=== PATIENT | male | born 1940 | race Hispanic/Latino ===

== ENCOUNTER → 2019-02-08 | Day surgery (SDC) | payer MEDICARE ==
[2019-02-04 10:49] LABS: BASOPHILS # (AUTO) 0.1 (0.0-0.1); BASOPHILS % 0.8 % (0.0-1.0); EOSINOPHILS # (AUTO) 0.4 (0.0-0.4); EOSINOPHILS % 4.3 % (0.0-6.0); HEMATOCRIT 33.4 % (38.2-49.6); HEMOGLOBIN 11.4 g/dL (14.0-18.0); LYMPHOCYTES # (AUTO) 3.2 (1.0-3.2); LYMPHOCYTES % 37.4 % (18.0-39.1); MEAN CORPUSCULAR HEMOGLOBIN 33.4 pg (28-32); MEAN CORPUSCULAR HGB CONC 34.1 g/dL (31-35); MEAN CORPUSCULAR VOLUME 97.9 fL (81-99); NEUTROPHILS # (AUTO) 3.9 (2.1-6.9); NEUTROPHILS % 45.3 % (38.7-80.0); PLATELET COUNT 202 x10e3/uL (140-360); RED BLOOD COUNT 3.41 x10e6/uL (4.3-5.7); RED CELL DISTRIBUTION WIDTH 13.8 % (11.7-14.4)
[2019-02-04 11:05] LABS: INR 0.91; PROTHROMBIN TIME 12.7 seconds (11.9-14.5)
[2019-02-04 11:11] LABS: ALBUMIN 3.9 g/dL (3.5-5.0); ALBUMIN/GLOBULIN RATIO 1.1 (0.8-2.0); ANION GAP 12.1 mmol/L (8-16); CALCIUM 10.2 mg/dL (8.4-10.2); CREATININE, SERUM 4.66 mg/dL (0.72-1.25); POTASSIUM 5.1 mmol/L (3.5-5.1)
[2019-02-08] VITALS (9 sets, daily range): BP systolic 121–167; BP diastolic 63–77
[~2019-02-08] VITALS: Ht 182.9 cm; Wt 117.9 kg
[~2019-02-08] MED LIST: ALLOPURINOL100 MG PO; AMLODIPINE BESY10 MG PO; ASPIR 8181 MG PO; ATENOLOL50 MG PO; CALCIUM ACETAT667 M1 PO; FENTANYL CITRATE/PF 100MCG/2 ML INJ ONE; GABAPENTIN100 MG PO; HEPARIN SOD (PORCINE) 1000 UNIT/ML 30ML ONE; HEPARIN SOD/SOD CHLORIDE 2,000 ML ONE; HUMALOG KWIKPEN SQ; HUMULIN R100 UNIT/2 SC; IOPAMIDOL 300MG/ML 100 ML INFUS..BTL IV ONE; IOPAMIDOL 370 MG/ML 200 ML INFUS..BTL INJ ONE; LANTUS SQ; LASIX20 MG PO; LIDOCAINE HCL 2% LOCAL 20 ML VIAL ONE; MIDAZOLAM HCL 2 MG/2 ML VIAL ONE; NITROGLYCERIN/D5W 200 MCG/ML 250 ML ONE; RENAGEL800 MG PO; SIMVASTATIN20 MG PO; SODIUM CHLORIDE 0.9% 1000ML 0 ML ONE; SODIUM CHLORIDE 0.9% 1000ML 1,000 ML ONE; VERAPAMIL HCL 2.5 MG/ML 2 ML VIAL ONE; ZEMPLAR1 MCG PO
--- OUTSIDE RECORDS SUMMARY | 2019-02-08 05:52 | XMS REPORT | Clinical Summary ---
Author Author FABIOLA [facility] Organization [facility] Address Unknown Phone Unavailable Care Team Providers Care Oil Pipeline Operator Name Role Phone Shay Owusu PCP Allergies Comments Active Allergy Reactions Severity Noted Date Cephalexin Rash Low 03/24/2016 Medications End Date Status Medication Sig Dispensed Refills Start Date Active amLODIPine (NORVASC) 10 Take 10 mg by 0 MG tablet mouth daily. Active simvastatin (ZOCOR) 20 MG Take 20 mg by 0 tablet mouth nightly. Active atenolol (TENORMIN) 50 MG Take 50 mg by 0 tablet mouth daily. Active allopurinol (ZYLOPRIM) Take 100 mg 0 100 MG tablet by mouth daily. Active furosemide (LASIX) 20 MG Take 20 mg by 0 tablet mouth daily Takes 2 pills MWF . Active aspirin 81 MG EC tablet Take 81 mg by 0 mouth daily. Active multivitamin per tablet Take 1 tablet 0 by mouth daily. Active insulin glargine (LANTUS) Inject 66 0 100 unit/mL injection Units subcutaneousl y nightly Use as directed . Active insulin lispro (HUMALOG) Inject 40 0 100 unit/mL injection Units subcutaneousl y 3 (three) times daily before meals. Active Problems Problem Noted Date Leukocytosis 04/15/2016 Elevated troponin 04/15/2016 Fever, unspecified fever cause 04/15/2016 (aortic stenosis) 04/10/2016 Aortic stenosis 04/02/2016 Chronic kidney disease, stage III (moderate) 04/02/2016 Type 2 diabetes mellitus, controlled 04/02/2016 Normocytic normochromic anemia 04/02/2016 HLD (hyperlipidemia) 04/02/2016 Essential hypertension 04/02/2016 PVD (peripheral vascular disease) 04/02/2016 Family History Medical History Relation Name Comments Kidney disease Brother Liver disease Brother Heart disease Father Stroke Mother Relation Name Status Comments Brother Brother Father Mother Social History Date Tobacco Use Types Packs/Day Years Used Never Smoker Smokeless Tobacco: Never Used Alcohol Use Drinks/Week oz/Week Comments No Sex Assigned at Date Recorded Not on file Industry Job Start Date Occupation Not on file Not on file Not on file Travel End Travel History Travel Start No recent travel history available. Last Filed Vital Signs Not on file Plan of Treatment Health Maintenance Due Date Last Done Comments INFLUENZA VACCINE 06/07/2018 Implants Device Identifier Shelf Expiration Date Model / Serial / Lot Implanted Type Area Manufactur er 01/17/2017 [id number] / [id number] / Argueta Eloise 3 Transcatheter Valves N/A: Aorta ARGUETA Heart Valve LIFESCIENC Implanted: Qty: 1 on 04/10/2016 by Fabrice Jones MD Results Not on fileafter 02/07/2018 Insurance Payer Benefit Subscriber ID Type Phone Address Plan / Group MEDICARE MEDICARE A xxxxxxxxxx Medicare B AETNA - MGD CARE AETNA HMO xxxxxxxxxx HMO/POS POS QPOS Advance Directives Patient has advance care planning documents, and code status on file. For more i nformation, please contact: [address] [address] Date Inactivated Comments Code Status Date Activated 04/18/2016 3:52 AM Full Code 04/15/2016 8:35 AM This code status was determined by: Patient 04/11/2016 4:29 PM Full Code 04/10/2016 5:32 AM This code status was determined by: Patient
--- OUTSIDE RECORDS SUMMARY | 2019-02-08 05:52 | XMS REPORT | Clinical Summary ---
Author Author [facility] Organization [facility] Address Unknown Phone Unavailable Care Team Providers Care Joiners Supervisor Name Role Phone Shay Owusu MD PCP Allergies Comments Active Allergy Reactions Severity Noted Date Cephalexin Rash Low 02/18/2017 Medications End Date Status Medication Sig Dispensed Refills Start Date Active allopurinol (ZYLOPRIM) Take 1 tablet 0 100 MG tablet by mouth 7 daily. Active atenolol (TENORMIN) 50 MG Take 1 tablet 0 tablet by mouth 7 daily. Active amLODIPine (NORVASC) 10 Take 1 tablet 0 mg tablet by mouth 7 daily. Active simvastatin (ZOCOR) 20 MG Take 1 tablet 0 tablet by mouth 7 daily. Active aspirin (ECOTRIN) 81 MG Take 81 mg by 0 enteric coated tablet mouth daily. Active glimepiride (AMARYL) 4 MG Take 4 mg by 0 tablet mouth 2 (two) times a day. Active losartan (COZAAR) 25 MG Take 25 mg by 0 tablet mouth daily. Active multivitamin (THERAGRAN) Take 1 tablet 0 tablet by mouth. Active HUMULIN R U-500, CONC, Inject 500 0 KWIKPEN 500 unit/mL (3 unit marking 7 mL) insulin pen on U-100 syringe under the skin. Active paricalcitol (ZEMPLAR) 1 Take 1 mcg by 0 MCG capsule mouth daily. 7 Active furosemide (LASIX) 20 mg Take 20 mg by 0 tablet mouth daily. 7 Active calcium acetate (PHOSLO) Take 667 mg 0 667 mg capsule by mouth 3 7 (three) times a day with meals. Active Problems Problem Noted Date ESRD (end stage renal disease) 04/27/2017 Social History Date Tobacco Use Types Packs/Day Years Used Never Smoker Alcohol Use Drinks/Week oz/Week Comments Yes rare Sex Assigned at Date Recorded Not on file Industry Job Start Date Occupation Not on file Not on file Not on file Travel End Travel History Travel Start No recent travel history available. Last Filed Vital Signs Not on file Plan of Treatment Health Maintenance Due Date Last Done Comments SHINGLES VACCINES (#1) 1992 65+ PNEUMOCOCCAL VACCINE 2007 (1 of 2 - PCV13) PNEUMOCOCCAL 2007 POLYSACCHARIDE VACCINE AGE 65 AND OVER INFLUENZA VACCINE 04/07/2019 Implants Device Identifier Shelf Expiration Date Model / Serial / Lot Implanted Type Area Manufactur er 09/23/2020 [id number] / [id number] / [id number] Graft Vasclr [place]-Zan Stdwl 40cm Vascular Left: Arm, W L GORE 6mm - [id number] - [id number] Graft Lower Implanted: Qty: 1 on 02/19/2017 by Mike Lopez MD Results Not on fileafter 02/07/2018 Insurance Type Payer Benefit Subscriber ID Effective Phone Address Plan / Dates Group HMO AETNA AETNA xxxxxxxxxx 1991- HMO,POS,EP Present O, MC/EC Medicare MEDICARE MEDICARE xxxxxxxxxx 2007-P [place], PART A AND resent [place] B Advance Directives Patient has advance care planning documents on file. For more information, jesus blackman contact: Garth Amador [address] [place] [address]
--- NOTE | 2019-02-08 09:31 | NUR ---
0931 Received pt in Rm #9 Identifierx2 [facility] Peripheral No fix DR Aguilar. NSR Vs Stable No Gross issues pain pallor pressure or dysrhythmia. Rt groin Vascade w/o hematoma or edema. Back to baseline orientation.Abdomen soft and non tender denies necessity to defecate or urinate. Kevin femoral pulses present. Iv infusing well w/o s/s infiltration. Left arm Fistula positive thrill, Iv infusing well w/o s/s infiltration.Discharge planning discussed with Son Jesus Manuel Copies of dc paper with family. 1100 HOB elevated offered po intake and tolerated well. 1130 Iv removed site health Coban dressing.No bleeding not to rt vascade site. Explained POC and explained. ds/rnExplained use of waffle mattress. Denies CO CP or SOB To car per [facility] escort Stable.
--- NOTE | 2019-04-14 15:46 | Operative Report ---
DATE OF PROCEDURE: 02/08/2019 SURGEON: Ramakrishna Aguilar DO PROCEDURES PERFORMED: 1. Conscious sedation, 45 minutes. 2. Selective coronary angiography x2. 3. Selective graft angiography x3. 4. Abdominal aortography. 5. Third-order peripheral angiography of the left lower extremity. 6. Attempted percutaneous transluminal angioplasty of the left posterior tibial artery. PREPROCEDURE DIAGNOSES: History of coronary artery disease and peripheral artery disease with claudication. POSTPROCEDURE DIAGNOSIS: 1. Severe peripheral arterial disease. 2. Severe multivessel coronary artery disease, status post bypass surgery with patent grafts. PROCEDURE IN DETAIL: After informed consent was obtained, the patient was brought to the cardiac catheterization laboratory in a fasting and nonsedated state. Bilateral groins were prepped and draped in the usual sterile fashion. A 2% lidocaine was instilled over the right anterior groin for local anesthesia. Using micropuncture needle, the right common femoral artery was accessed via the modified Seldinger technique and a 5-Bolivian sheath was placed. Diagnostic selective coronary angiography and graft angiography x3 was performed using a JL4, 3DRC, and JR4 catheters. The aortic valve was not crossed due to previous Eloise valve placement. I performed abdominal aortography. I crossed up and over with a 65 cm sheath and attempted percutaneous transluminal angioplasty of the left posterior tibial without success. The patient tolerated the procedure well with no immediate complications and brought back to his room in stable condition. PROCEDURAL FINDINGS: Coronary angiography. 1. The left main coronary artery is patent without significant disease. 2. The left anterior descending coronary artery is occluded at its ostium. The midportion of the vessel is anastomosed to the left internal mammary artery and fills in a retrograde and antegrade fashion. 3. Left circumflex coronary is patent, provides two obtuse marginal vessels with mild diffuse disease. 4. The right coronary artery is a dominant vessel, however, is occluded in the midportion of the RCA. 5. There is a saphenous vein graft anastomosed to the distal RCA with MARCOS-3 flow distally. 6. There is a saphenous vein graft anastomosed to the first diagonal branch. Just distal to the anastomosis, there is a stent in the diagonal artery with a distal branch of the D1 showing a 70% stenosis, however, is less than 2 mm in diameter. 7. There is a Eloise valve present in the aortic position. Peripheral angiography. 1. The abdominal aorta, bilateral iliac systems, and common femoral arteries are patent. 2. The left superficial femoral artery has mild diffuse disease proximally and has a 30-40% stenosis just prior to the left popliteal artery. The left anterior tibial artery is occluded proximally and fills distally via collaterals from the peroneal vessel. The peroneal itself has a 40% stenosis. The left posterior tibial artery is occluded and fills via collaterals from the distal peroneal vessel. 3. The right superficial femoral artery is patent as is the popliteal. The right anterior tibial and peroneal vessels are chronically occluded and fills distally via collaterals. The right posterior tibial artery is patent. IMPRESSION: 1. Severe multivessel coronary artery disease with patent grafts. 2. Severe tibial peripheral artery disease, which collateralizes the bilateral plantar arches. RECOMMENDATIONS: Continue aggressive medical management. DO BRANDI Hairston/SHELLEYL /[id number]
== END | disposition home or self-care (01) ==
LOC: CATH LAB 05:34
PROVIDERS: ATTEND Internal Medicine Cardiovascular Disease
DX: I70.212 Atherosclerosis of native arteries of extremities with intermittent claudication, left leg (principal); I25.810 Atherosclerosis of coronary artery bypass graft(s) without angina pectoris; I10 Essential (primary) hypertension; E11.9 Type 2 diabetes mellitus without complications; I83.813 Varicose veins of bilateral lower extremities with pain; Z01.812 Encounter for preprocedural laboratory examination; Z79.82 Long term (current) use of aspirin; Z79.4 Long term (current) use of insulin; Z68.35 Body mass index [BMI] 35.0-35.9, adult; Z95.1 Presence of aortocoronary bypass graft; Z95.2 Presence of prosthetic heart valve; Z86.73 Personal history of transient ischemic attack (TIA), and cerebral infarction without residual deficits; Z82.49 Family history of ischemic heart disease and other diseases of the circulatory system; Z82.3 Family history of stroke
CPT/HCPCS: 36415; 37228; 75625; 80053; 85025; 85610; 93455; C1760; C1769 ×4; C1887; J1644; J2001; J2250; J7030; Q9967 ×2; 36247; 75716; J3010

== ENCOUNTER 2019-05-12 11:01 | Observation (INO) | payer MEDICARE ==
[~2019-05-12] VITALS: Ht 182.9 cm; Wt 99.8 kg
[~2019-05-12 11:01] MED LIST changes: -FENTANYL CITRATE/PF 100MCG/2 ML INJ ONE; -HEPARIN SOD (PORCINE) 1000 UNIT/ML 30ML ONE; -HEPARIN SOD/SOD CHLORIDE 2,000 ML ONE; -HUMALOG KWIKPEN SQ; -IOPAMIDOL 300MG/ML 100 ML INFUS..BTL IV ONE; -IOPAMIDOL 370 MG/ML 200 ML INFUS..BTL INJ ONE; -LANTUS SQ; -LIDOCAINE HCL 2% LOCAL 20 ML VIAL ONE; -MIDAZOLAM HCL 2 MG/2 ML VIAL ONE; -NITROGLYCERIN/D5W 200 MCG/ML 250 ML ONE; -RENAGEL800 MG PO; -SODIUM CHLORIDE 0.9% 1000ML 0 ML ONE; -SODIUM CHLORIDE 0.9% 1000ML 1,000 ML ONE; -VERAPAMIL HCL 2.5 MG/ML 2 ML VIAL ONE
--- OUTSIDE RECORDS SUMMARY | 2019-05-12 11:04 | XMS REPORT | Clinical Summary ---
Author Author [facility] Organization [facility] Address Unknown Phone Unavailable Care Team Providers Care Reconciliation Coordinator Name Role Phone Shay Owusu MD PCP [...] Use Types Packs/Day Years Used Never Smoker Drinks/Week oz/Week Comments Alcohol Use rare Yes Sex Assigned at Date Recorded Not on file Industry Job Start Date Occupation Not on file Not on file Not on file Travel End Travel History Travel Start No recent travel history available. Last Filed Vital Signs Not on file Plan of Treatment Health Maintenance Due Date Last Done Comments SHINGLES VACCINES (#1) 1992 65+ PNEUMOCOCCAL VACCINE 2007 (1 of 2 - PCV13) INFLUENZA VACCINE 04/07/2019 Implants Device Identifier Shelf Expiration Date Model / Serial / Lot Implanted Type Area Manufactur er 09/23/2020 [id number] / [id number] / [id number] Graft Vasclr [place]-Zan Stdwl 40cm Vascular Left: Arm, W L GORE 6mm - [id number] - [id number] Graft Lower Implanted: Qty: 1 on 02/19/2017 by Mkie Lopez MD at [facility] Results Not on fileafter 2018 Insurance Type Payer Benefit Subscriber ID Effective Phone Address Plan / Dates Group HMO AETNA AETNA xxxxxxxxxx 1991- HMO,POS,EP Present O, MC/EC Medicare MEDICARE MEDICARE xxxxxxxxxx 2007-P [place], PART A AND resent [place] B Advance Directives For more information, please contact: [phone] Patient Health Insurance Assessor Explanation Type Date Recorded Advance Directives, Living Will and Medical Power of Filtering Machine Tender Helper
--- OUTSIDE RECORDS SUMMARY | 2019-05-12 11:04 | XMS REPORT | Clinical Summary ---
Author Author FABIOLA [facility] Organization [facility] Address Unknown Phone Unavailable Care Team Providers Care Water Main Inspector Name Role Phone Shay Owusu PCP Allergies [...] Type Area Manufactur er 01/17/2017 [id number] / [id number] / Argueta Eloise 3 Transcatheter Valves N/A: Aorta ARGUETA Heart Valve LIFESCIENC Implanted: Qty: 1 on 04/10/2016 by Fabrice Jones MD Results Not on fileafter 2018 Insurance Payer Benefit Subscriber ID Type Phone Address Plan / Group MEDICARE MEDICARE A xxxxxxxxxx Medicare B AETNA - MGD CARE AETNA HMO xxxxxxxxxx HMO/POS POS QPOS Advance Directives Patient has advance care planning documents, and code status on file. For more i nformation, please contact: [address] [address] Date Inactivated Comments Code Status Date Activated 04/18/2016 3:52 AM Full Code 04/15/2016 8:35 AM This code status was determined by: Patient 04/11/2016 4:29 PM Full Code 04/10/2016 5:32 AM This code status was determined by: Patient
[2019-05-12 12:02] LABS: BASOPHILS # (AUTO) 0.1 (0.0-0.1); BASOPHILS % 0.6 % (0.0-1.0); EOSINOPHILS # (AUTO) 0.1 (0.0-0.4); EOSINOPHILS % 0.7 % (0.0-6.0); HEMOGLOBIN 10.8 g/dL (14.0-18.0); LYMPHOCYTES # (AUTO) 1.6 (1.0-3.2); LYMPHOCYTES % 15.3 % (18.0-39.1); MEAN CORPUSCULAR HEMOGLOBIN 33.6 pg (28-32); MEAN CORPUSCULAR HGB CONC 34.8 g/dL (31-35); MEAN CORPUSCULAR VOLUME 96.6 fL (81-99); MONOCYTES # (AUTO) 0.7 (0.2-0.8); MONOCYTES % 6.9 % (4.4-11.3); NEUTROPHILS # (AUTO) 8.1 (2.1-6.9); NEUTROPHILS % 76.1 % (38.7-80.0); PLATELET COUNT 226 x10e3/uL (140-360); RED BLOOD COUNT 3.21 x10e6/uL (4.3-5.7); RED CELL DISTRIBUTION WIDTH 13.2 % (11.7-14.4)
[2019-05-12 12:07] LABS: INR 0.9; PROTHROMBIN TIME 12.6 seconds (11.9-14.5)
[2019-05-12 12:08] LABS: PARTIAL THROMBOPLASTIN TIME 40.3 seconds (23.8-35.5)
[2019-05-12 12:15] LABS: ALBUMIN 3.3 g/dL (3.5-5.0); ANION GAP 18.6 mmol/L (8-16); CALCIUM 9.3 mg/dL (8.4-10.2); CREATININE, SERUM 6.46 mg/dL (0.72-1.25); MAGNESIUM 2.3 MG/DL (1.3-2.1); POTASSIUM 3.6 mmol/L (3.5-5.1)
[2019-05-12 12:22] LABS: CREATINE KINASE MB 2.6 ng/mL (0-5.0)
--- NOTE | 2019-05-12 13:15 | NUR ---
PT GIVEN TURKEY SANDWICH TRAY AND DIET COKE, SON AT BEDSIDE ASSISTING WITH MEAL, TOLERATING WELL AT THIS TIME.
--- NOTE | 2019-05-12 13:45 | Diagnostic Imaging Report ---
CT BRAIN WO HISTORY: Fall COMPARISON: None. Technique: Noncontrast axial scans were obtained from skull base to the vertex. Coronal and sagittal reconstructions obtained from the axial data. One or more of the following dose reduction techniques were used: Automated exposure control, adjustment of the mA and/or kV according to patient size, and/or utilization of iterative reconstruction technique. DISCUSSION: Scalp/Skull: Unremarkable. Brain sulci: Mildly prominent. Ventricles: Compensatory dilatation. Extra-axial spaces: No masses or fluid collections. Carotid and vertebral artery calcifications are present. Parenchyma: Moderate bilateral deep white matter hypodensity is likely chronic microvascular ischemic change. Otherwise, no masses, hemorrhage, or large vascular territory acute infarct. Dural sinuses: No abnormal densities. Sellar/Suprasellar region: Intact. Skull base: Intact. Incidental findings: Partially visualized mild bilateral maxillary sinus mucosal thickening. Bilateral ocular lens replacement. IMPRESSION: 1. No acute intracranial abnormalities. 2. Moderate supratentorial chronic microvascular ischemic change. Mild generalized cerebral volume loss. Signed by: Dr. Asael Porter M.D. on 05/12/2019 1:41 PM
[2019-05-12 14:38] LABS: BILIRUBIN,URINE NEGATIVE (NEGATIVE); CLARITY,URINE SL CLOUDY (CLEAR); COLOR,URINE YELLOW (YELLOW); KETONES,URINE NEGATIVE (NEGATIVE); LEUKOCYTE ESTERASE ,URINE NEGATIVE (NEGATIVE); NITRITE,URINE NEGATIVE (NEGATIVE); PROTEIN,URINE DIPSTICK 2+ (NEGATIVE); URINE UROBILINOGEN 0.2 mg/dL (0.2 - 1)
[2019-05-12 14:50] LABS: RBC,URINE 0-5 /HPF (0-5); WBC,URINE (MAN) 0-5 /HPF (0-5)
[2019-05-12 14:51] LABS: EPITHELIAL CELLS,URINE FEW /LPF
--- NOTE | 2019-05-12 15:11 | Diagnostic Imaging Report ---
EXAMINATION: CHEST SINGLE (PORTABLE) INDICATION: Syncope COMPARISON: None FINDINGS: LINES/TUBES:None LUNGS:The lung volumes are low. Patchy airspace opacity involving the left mid and lower lung zone. PLEURA:No pleural effusion or pneumothorax. MEDIASTINUM:The cardiomediastinal silhouette appears normal in size and shape. Sternotomy wires intact. BONES/SOFT TISSUES:Partially visualized sclerotic area at the right proximal humerus, possibly representing a chondroid lesion. ABDOMEN:No free air under the diaphragm. IMPRESSION: Patchy airspace opacity at the left mid and lower lung zones is compatible with aspiration and/or pneumonia in the proper clinical setting. RECOMMENDATIONS: Follow-up chest radiograph in 6-8 weeks to assess for resolution. Signed by: Kaushal Bean MD on 05/12/2019 3:08 PM
--- NOTE | 2019-05-12 16:48 | NUR ---
PT MOVED TO ROOM 11 AT THIS TIME AND PLACED ON HARNESS WORKER.
[2019-05-12] MEDS: PIPERACILLIN/TAZO 2.25 GM 50 ML IV SCH (17:04)
[2019-05-12] MEDS ORDERED: MORPHINE SULFATE 2 MG/ML SYR 1ML IV PRN (17:15)
[2019-05-12] MEDS ORDERED: ONDANSETRON HCL INJ 2MG/ML 2ML 2 MG/ML VIAL IV PRN (17:15)
[2019-05-12] MEDS ORDERED: DEXTROSE 50% SYRINGE 50 ML IV PRN (17:15)
--- OUTSIDE RECORDS SUMMARY | 2019-05-12 17:22 | XMS REPORT | Clinical Summary ---
Author Author FABIOLA [facility] Organization [facility] Address Unknown Phone Unavailable Care Team Providers Care Continuous Mining Machine Lode Miner Name Role Phone Shay Owusu PCP Allergies [...] Type Area Manufactur er 01/17/2017 [id number] / [id number] / Argueta Eloise 3 Transcatheter Valves N/A: [...] file. For more i nformation, please contact: [address] [address] Date Inactivated Comments Code Status Date Activated 04/18/2016 3:52 AM Full Code 04/15/2016 8:35 AM This code status was determined by: Patient 04/11/2016 4:29 PM Full Code 04/10/2016 5:32 AM This code status was determined by: Patient
--- OUTSIDE RECORDS SUMMARY | 2019-05-12 17:22 | XMS REPORT ---
Author Author [facility] Address Unknown Phone Unavailable Care Team Providers Care Mechanical Design Engineer Products Name Role Phone Nicole SANDHU Unavailable Unavailable Problems This patient has no known problems. Allergies, Adverse Reactions, Alerts This patient has no known allergies or adverse reactions. Medications This patient has no known medications. Results Test Description Test Time Test Comments Text Results Atomic Results Result Comments CHEST SINGLE (PORTABLE) 2019-05-12 15:06:00 [facility] [address] [place] [address] Patient Name: SPARKLE HERNANDEZ MR #: [id number] : 1940 Age/Sex: 79/M Req #: [id number] Adm Physician: Ordered by: MERNA SANDHU MD Report #: [id number] Location: ER Room/Bed: Procedure: [id number] DX/CHEST SINGLE (PORTABLE) Exam Date: 05/12/19 Exam Time: 1130 REPORT STATUS: Signed EXAMINATION: CHEST SINGLE (PORTABLE) INDIC ATION: Syncope COMPARISON: None FINDINGS: LINES/TUBES:None LUNGS:The lung volumes are low. Patchy airspace opacity involving the left mid and lower lung zone. PLEURA:No pleural effusion or pneumothorax. MEDIASTINUM:The cardiomediastinal silhouette appears normal in size and shape. Sternotomy wires intact. BONES/SOFT TISSUES:Partially visualized sclerotic area at the right proximal humerus, possibly representing a chondroid lesion. ABDOMEN:No free air under the diaphragm. IMPRESSION: Patchy airspace opacity at the left mid and lower lung zones is compatible with aspiration and/or pneumonia in the proper clinical setting. RECOMMENDATIONS: Follow-up chest radiograph in 6-8 weeks to assess for resolution. Signed by: Sally Nath MD on 05/12/2019 3:08 PM Dictated By: SALLY NATH MD 07 Transcribed By: MARIELA on 05/12/191507 COPY TO: MERNA SANDHU MD CT BRAIN WO 2019-05-12 13:39:00 [place] [address] Patient Name: SPARKLE HERNANDEZ MR #: [id number] : 1940 Age/Sex: 79/M Req #: [id number] Adm Physician: Ordered by: MERNA SANDHU MD Report #: [id number] Location: ER Room/Bed: Procedure: [id number] CT/CT BRAIN WO Exam Date: 05/12/19 Exam Time: 1130 REPORT STATUS: Signed CT BRAIN WO HISTORY: Fall COMPARISON: None. Te chnique: Noncontrast axial scans were obtained from skull base to the vertex. Coronal and sagittal reconstructions obtained from the axial data. One or more of the following dose reduction techniques were used: Automated exposure control, adjustment of the mA and/or kV according to patient size, and/or utilization of iterative reconstruction technique. DISCUSSION: Scalp/Skull: Unremarkable. Brain sulci: Mildly prominent. Ventricles: Compensatory dilatation. Extra-axial spaces: No masses or fluid collections. Carotid and vertebral artery calcifications are present. Parenchyma: Moderate bilateral deep white matter hypodensity is likely chronic microvascular ischemic change. Otherwise, no masses, hemorrhage, or large vascular territory acute infarct. Dural sinuses: No abnormal densities. Sellar/Suprasellar region: Intact. Skull base: Intact. Incidental findings: Partially visualized mild bilateral maxillary sinus mucosal thickening. Bilateral ocular lens replacement. IMPRESSION: 1. No acute intracranial abnormalities. 2. Moderate supratentorial chronic microvascular ischemic change. Mild generalized cerebral volume loss. Signed by: Dr. Asael Porter M.D. on 05/12/2019 1:41 PM Dictated By: ASAEL PORTER MD 1341 Transcribed By: MARIELA on 05/12/19 1341 COPY TO: MERNA SANDHU MD
--- OUTSIDE RECORDS SUMMARY | 2019-05-12 17:22 | XMS REPORT | Clinical Summary ---
Author Author [facility] Organization [facility] Address Unknown Phone Unavailable Care Team Providers Care Transcripter Name Role Phone Shay Owusu MD PCP [...] Lot Implanted Type Area Manufactur er 09/23/2020 [id number] / [id number] / [id number] Graft Vasclr [place]-Zan Stdwl 40cm Vascular Left: Arm, W L GORE 6mm - [id number] - [id number] Graft Lower Implanted: Qty: 1 on 02/19/2017 by Mike Lopez MD at [facility] Results Not on fileafter 2018 Insurance Type Payer Benefit Subscriber ID Effective Phone Address Plan / Dates Group HMO AETNA AETNA xxxxxxxxxx 1991- HMO,POS,EP Present O, MC/EC Medicare MEDICARE MEDICARE xxxxxxxxxx 2007-P [place], PART A AND resent [place] B Advance Directives For more information, please contact: [phone] Patient Laborer Adjustable Steel Joist Explanation Type Date Recorded Advance Directives, Living Will and Medical Power of Stitcher Operator
[2019-05-12] MEDS: AZITHROMYCIN 500MG/NS 250 ML 250 ML IV SCH (18:10)
[2019-05-12 20:00] VITALS: BP 160/71
[2019-05-12] MEDS: INSULIN LISPRO 100 UNIT/1 ML 3ML VIAL SQ SCH (21:00)
--- NOTE | 2019-05-12 21:34 | NUR ---
PT IS TRANSFERRED FROM ER AOX3 .RESPIRATIONS ARE EVEN AND UNLABORED PT HAD FALL AT HOME PT HAS OPEN WOUND BILATERAL KNEE DUE TO FALL .BRUISES AT RT HAND .LEFT HAND PT HAS AV GRAFT FOR DIALYSIS .ORIENTED TO THE ENVIRONMENT .RT HAND 20G S/L .FAMILY AT THE BEDSIDE.CALL LIGHT WITHREACH .CONTINUE TO MONITOR
[2019-05-13] VITALS (11 sets, daily range): BP systolic 124–177; BP diastolic 59–74
[2019-05-13 03:07] LABS: CREATINE KINASE MB 1.9 ng/mL (0-5.0)
[2019-05-13] MEDS ORDERED: SODIUM CHLORIDE 0.9% 250ML 250 ML ONE (03:14)
[2019-05-13] MEDS: PIPERACILLIN/TAZO 2.25 GM 50 ML IV SCH ×2 (04:30→16:30)
--- NOTE | 2019-05-13 06:19 | NUR ---
PT RESTED DURING THE NIGHT .DENIES PAIN .CALL LIGHT WITH IN REACH .CONTINUE TO MONITOR
[2019-05-13 06:49] LABS: BASOPHILS # (AUTO) 0.1 (0.0-0.1); BASOPHILS % 0.7 % (0.0-1.0); EOSINOPHILS # (AUTO) 0.3 (0.0-0.4); EOSINOPHILS % 4.5 % (0.0-6.0); HEMATOCRIT 28.9 % (38.2-49.6); HEMOGLOBIN 10.1 g/dL (14.0-18.0); LYMPHOCYTES % 30.2 % (18.0-39.1); MEAN CORPUSCULAR HEMOGLOBIN 33.8 pg (28-32); MEAN CORPUSCULAR HGB CONC 34.9 g/dL (31-35); MEAN CORPUSCULAR VOLUME 96.7 fL (81-99); MONOCYTES # (AUTO) 0.7 (0.2-0.8); NEUTROPHILS # (AUTO) 3.6 (2.1-6.9); NEUTROPHILS % 54.3 % (38.7-80.0); PLATELET COUNT 223 x10e3/uL (140-360); RED BLOOD COUNT 2.99 x10e6/uL (4.3-5.7); RED CELL DISTRIBUTION WIDTH 13.3 % (11.7-14.4)
--- NOTE | 2019-05-13 07:00 | NUR ---
received am report from RN and morning rounds done. pt is alert and resting in bed, no s/s of distress. call light within reach and pt instructed to call nurse for help.
--- NOTE | 2019-05-13 07:11 | NUR ---
BEDSIDE REPORT GIVEN TO THE ONCOMING NURSE
[2019-05-13 07:13] LABS: ALBUMIN 3.1 g/dL (3.5-5.0); ANION GAP 14.5 mmol/L (8-16); CALCIUM 8.8 mg/dL (8.4-10.2); CHOL/HDL RATIO 5.3 (3.9-4.7); CREATININE, SERUM 6.16 mg/dL (0.72-1.25); POTASSIUM 3.5 mmol/L (3.5-5.1)
[2019-05-13 07:20] LABS: CREATINE KINASE MB 1.6 ng/mL (0-5.0)
[2019-05-13] MEDS: INSULIN LISPRO 100 UNIT/1 ML 3ML VIAL SQ SCH ×4 (07:30→21:22)
[2019-05-13] MEDS ORDERED: ASPIRIN 81 MG CHEW TAB PO SCH (09:00)
[2019-05-13] MEDS: FUROSEMIDE 20 MG TAB PO SCH (10:17)
[2019-05-13] MEDS: ASPIRIN 81 MG ENTERIC COATED PO SCH (10:17)
[2019-05-13] MEDS: GABAPENTIN 100 MG CAP PO SCH ×2 (10:18→16:47)
[2019-05-13] MEDS: CALCIUM ACETATE 667 MG GELCAP PO SCH ×2 (10:27→16:47)
[2019-05-13] MEDS: ATENOLOL 50 MG TAB PO SCH (10:27)
[2019-05-13] MEDS: AMLODIPINE BESYLATE 10 MG TAB PO SCH (10:27)
[2019-05-13] MEDS: ALLOPURINOL 100 MG TAB PO SCH (10:28)
--- NOTE | 2019-05-13 15:12 | NUR ---
Nutrition Screen Note RD Recommendation for Physician: -Rec adding renal to ADA diet -Rec WAXED BAG MACHINE OPERATOR consult if risk of aspiration is observed Plan of Care: RD following, monitoring for tolerance and adequacy Nutrition reason for involvement: Diagnosis Primary Diagnose(s): ESRD, PNA PMH: ESRD on HD, DM Ht: 72in Wt: 220lb BMI: 29.8kg/m2 IBW: 178lb +/- 10% RD Assessment: (05/13) Chart reviewed. Labs and meds reviewed. 79yo M, who was admitted for PNA. CXR showed patchy airspace opacity at the left mid and lower lung zones is compatible with aspiration and/or pneumonia. Visited pt in the room. Pt reported good appetite. No complains of nausea or vomiting. LBM /. Pt reported 20lbs of intentional weight loss through lifestyle changes. Pt denied any chewing or swallowing difficulty. Pt ate 100% of meals since admission. Notified RN of my recommendation for WAXED BAG MACHINE OPERATOR consult if aspiration risk is observed. Will continue to monitor and follow. Current Diet: ADA 1800 Malnutrition Evaluation (05/13/2019) The patient does not meet criteria for a specified degree of malnutrition at this time. Will re-evaluate at follow-up as appropriate. Diet Education Needs Assessment: Diet education not indicated. Followed by RD at [facility], no question during my time of visit. Nutrition Care Level: low Signed: Macy Dumont, , RD, LD
[2019-05-13] MEDS ORDERED: RENAGEL800 MG PO (16:15)
[2019-05-13] MEDS ORDERED: SIMVASTATIN 20 MG TAB PO SCH (21:00)
--- NOTE | 2019-05-13 21:30 | NUR ---
PATIENT IS DONE WITH DIALYSIS, NO SIGNS OF DISTRESS NOTED. 3 LITERS WAS REMOVED FROM PATIENT AND HE IS CURRENTLY EATING MEAL FROM EARLIER. PATIENT IS ALERT, BED IN LOWEST POSITION, CALL LIGHT WITHIN REACH, WILL CONTINUE TO MONITOR.
[2019-05-13] MEDS: AZITHROMYCIN 500MG/NS 250 ML 250 ML IV SCH (22:26)
[2019-05-14] VITALS: BP 129/59
--- NOTE | 2019-05-14 00:50 | Consultation ---
DATE OF CONSULTATION: 05/13/2019 HISTORY OF PRESENT ILLNESS: A 79-year-old gentleman. Renal has been consulted for management of kidney failure. He is scheduled for dialysis today. Currently, awake, alert, resting comfortable. Denies shortness of breath, nausea, vomiting. LABORATORY DATA: Labs show white count 6.6, hemoglobin 10.1. Has a sodium of 133, potassium 3.5, creatinine 6.1. Blood sugar is 244. CK 404, troponin I 0.056. ALLERGIES: CEPHALEXIN. SOCIAL HISTORY: Does not smoke or drink. PAST MEDICAL HISTORY: Significant for hypertension, end-stage renal disease, anemia of chronic kidney disease, secondary hyperparathyroidism, hyperlipidemia, history of gout, history of peripheral neuropathy, diabetes, diabetic kidney disease, diabetic neuropathy, retinopathy, and peripheral vascular disease. Initial blood sugars were relatively low. . Workup include CT brain, shows moderate supratentorial chronic microvascular changes. No acute infarcts and possibility of pneumonia. CURRENT MEDICATIONS: Please see official MAR. 1. He is on Humalog. 2. He receives Lasix 20 mg p.o. daily, which I am going to stop. 3. Simvastatin 20 mg daily. 4. Gabapentin 100 mg p.o. b.i.d. 5. PhosLo 667 mg p.o. t.i.d. with meals. 6. Atenolol 50 mg p.o. daily. 7. Aspirin 81 mg once a day. 8. He is on piperacillin/tazobactam 2.25 IV q.12 as well as azithromycin. PHYSICAL EXAMINATION: GENERAL: Awake, alert, lying supine, in no apparent distress. VITAL SIGNS: Blood pressure 152/66, pulse rate 70, afebrile, respiratory rate 20, oxygen 100% room air. HEAD AND NECK: Cornea clear. Oral mucosa moist. Neck veins flat. No JVD. LUNGS: Occasional bibasilar rales. HEART: S1, S2 audible. ABDOMEN: Otherwise soft, nontender. No apparent visceromegaly. EXTREMITIES: Lower extremity, no edema. LABORATORY DATA: Potassium 3.5, creatinine 6.6. Plan on hemodialysis. Sodium 140, potassium 4, bicarb 35, calcium 2.5. Blood flow 400 tolerated. Systolic blood pressure limit 110. Please see orders. MD SUKHDEV Fernandez/KENYON /[id number]
--- NOTE | 2019-05-14 02:30 | NUR ---
PATIENT IS RESTING IN BED BOTH EYES CLOSED, NO SIGNS OF DISTRESS NOTED. BED IS LOCKED AND IN LOWEST POSITION POSSIBLE, BOTH SIDE RAILS ARE UP, CALL LIGHT WITHIN REACH, WILL CONTINUE TO MONITOR.
[2019-05-14] MEDS: PIPERACILLIN/TAZO 2.25 GM 50 ML IV SCH (03:47)
[2019-05-14 04:00] VITALS: BP 151/66
--- NOTE | 2019-05-14 07:00 | NUR ---
received am report from nurse and morning rounds done. pt is alert and resting in bed, no s/s of distress. call light is within reach and pt instructed to call for help. side rails are up.
[2019-05-14 07:47] VITALS: BP 121/52
[2019-05-14] MEDS: ASPIRIN 81 MG ENTERIC COATED PO SCH (08:22)
[2019-05-14] MEDS: FUROSEMIDE 20 MG TAB PO SCH (08:23)
[2019-05-14] MEDS: CALCIUM ACETATE 667 MG GELCAP PO SCH (08:23)
[2019-05-14] MEDS: AMLODIPINE BESYLATE 10 MG TAB PO SCH (08:23)
[2019-05-14] MEDS: GABAPENTIN 100 MG CAP PO SCH (08:23)
[2019-05-14] MEDS: ATENOLOL 50 MG TAB PO SCH (08:24)
[2019-05-14] MEDS: ALLOPURINOL 100 MG TAB PO SCH (08:24)
--- NOTE | 2019-05-15 01:05 | Discharge Summary ---
DISCHARGE DIAGNOSES: 1. Pneumonia. 2. End-stage renal disease. 3. Diabetes. 4. Hypertension. 5. Anemia. HISTORY OF PRESENT ILLNESS AND HOSPITAL COURSE: See hospital chart for full details. The patient is a gentleman, who presented with some cough, congestion, and , where he was found to have a small evidence of pneumonia. His improved after infusing sugar. He was brought in and placed on IV antibiotics, had his dialysis treatment. He states he felt great moving quickly. By the next morning, the patient stated he was doing great, wanted to go home. He was no longer coughing, so he was discharged home with p.o. Levaquin for 7 more days and he will follow up in 1 to 2 weeks with me. Please see hospital chart for full details. MD ARTURO Owen/KENYON /[id number]
== END 2019-05-14 09:00 | disposition home or self-care (01) ==
LOC: ER 11:01 → ERHOLD 16:54 → MED/SURG3 20:36
PROVIDERS: ADMIT Internal Medicine; ATTEND Internal Medicine
DX: J18.9 Pneumonia, unspecified organism (principal); E11.22 Type 2 diabetes mellitus with diabetic chronic kidney disease; I12.0 Hypertensive chronic kidney disease with stage 5 chronic kidney disease or end stage renal disease; N18.6 End stage renal disease; Z99.2 Dependence on renal dialysis; Z79.4 Long term (current) use of insulin; D64.9 Anemia, unspecified; D63.1 Anemia in chronic kidney disease; N25.81 Secondary hyperparathyroidism of renal origin; M10.9 Gout, unspecified; E11.319 Type 2 diabetes mellitus with unspecified diabetic retinopathy without macular edema
CPT/HCPCS: 36415 ×3; 70450; 71045; 80053 ×2; 80061; 81001; 82550 ×2; 82553 ×2; 82948 ×3; 83735; 84484 ×2; 85025 ×2; 85610; 85730; 87040; 87071; 87086; 87205; 93005; 99285; G0378 ×3; J0456 ×2; J2543 ×3; J7050

== ENCOUNTER 2019-05-18 07:17 | Observation (INO) | payer MEDICARE ==
[~2019-05-18] VITALS: Ht 182.9 cm; Wt 112.1 kg
[~2019-05-18 07:17] MED LIST changes: +RENAGEL800 MG PO
--- OUTSIDE RECORDS SUMMARY | 2019-05-18 07:19 | XMS REPORT | Clinical Summary ---
Author Author FABIOLA [facility] Organization [facility] Address Unknown Phone Unavailable Care Team Providers Care Tricot Knitter Name Role Phone Shay Owusu PCP Allergies [...] Type Area Manufactur er 01/17/2017 [id number] / [id number] / Argueta Eloise 3 Transcatheter Valves N/A: Aorta ARGUETA Heart Valve LIFESCIENC Implanted: Qty: 1 on 04/10/2016 by Fabrice Jones MD Results Not on fileafter 05/17/2018 Insurance Payer Benefit Subscriber ID Type Phone Address Plan / Group MEDICARE MEDICARE A xxxxxxxxxx Medicare B AETNA - MGD CARE AETNA HMO xxxxxxxxxx HMO/POS POS QPOS Advance Directives Patient has advance care planning documents, and code status on file. For more i nformation, please contact: [address] [address] Date Inactivated Comments Code Status Date Activated 04/18/2016 3:52 AM Full Code 04/15/2016 8:35 AM This code status was determined by: Patient 04/11/2016 4:29 PM Full Code 04/10/2016 5:32 AM This code status was determined by: Patient
--- OUTSIDE RECORDS SUMMARY | 2019-05-18 07:19 | XMS REPORT | Clinical Summary ---
Author Author [facility] Organization [facility] Address Unknown Phone Unavailable Care Team Providers Care Wafer Batter Mixer Name Role Phone Shay Owusu MD PCP [...] Lot Implanted Type Area Manufactur er 09/23/2020 [id number] / [id number] / [id number] Graft Vasclr [place]-Zan Stdwl 40cm Vascular Left: Arm, W L GORE 6mm - [id number] - [id number] Graft Lower Implanted: Qty: 1 on 02/19/2017 by Mike Lopez MD at [facility] Results Not on fileafter 05/17/2018 Insurance Type Payer Benefit Subscriber ID Effective Phone Address Plan / Dates Group HMO AETNA AETNA xxxxxxxxxx 1991- HMO,POS,EP Present O, MC/EC Medicare MEDICARE MEDICARE xxxxxxxxxx 2007-P GARTH, PART A AND resent [place] B Advance Directives For more information, please contact: [phone] Patient Forensic Examiner Explanation Type Date Recorded Advance Directives, Living Will and Medical Power of Operations/Dispatch
[2019-05-18] MEDS ORDERED: DEXTROSE 50% SYRINGE 50 ML IV STA (07:20)
--- NOTE | 2019-05-18 07:20 | NUR ---
INFORMED DR. MORALES OF GLUCOSE 48, RECEIVED VERBAL ORDERS FOR D50 IVP X2 NOW, WILL GIVE AND WILL CONTINUE TO MONITOR.
--- NOTE | 2019-05-18 07:27 | NUR ---
Michael so in ED - 05/18/19 at 0731 by MARVA TIP OBTAINED AT 0709 AT BEDSIDE.
--- NOTE | 2019-05-18 07:29 | NUR ---
BEDSIDE GLUCOSE OBTAINED AT 0709. BG 48.
--- NOTE | 2019-05-18 07:31 | NUR ---
EKG OBTAINED AT 0711 AT BEDSIDE.
[2019-05-18 07:51] LABS: BASOPHILS # (AUTO) 0.1 (0.0-0.1); BASOPHILS % 0.7 % (0.0-1.0); EOSINOPHILS # (AUTO) 0.1 (0.0-0.4); EOSINOPHILS % 0.8 % (0.0-6.0); HEMATOCRIT 30.3 % (38.2-49.6); HEMOGLOBIN 10.7 g/dL (14.0-18.0); LYMPHOCYTES # (AUTO) 1.7 (1.0-3.2); LYMPHOCYTES % 21.6 % (18.0-39.1); MEAN CORPUSCULAR HEMOGLOBIN 36.1 pg (28-32); MEAN CORPUSCULAR HGB CONC 35.3 g/dL (31-35); MEAN CORPUSCULAR VOLUME 102.4 fL (81-99); MONOCYTES # (AUTO) 0.8 (0.2-0.8); MONOCYTES % 10.3 % (4.4-11.3); NEUTROPHILS # (AUTO) 5.1 (2.1-6.9); NEUTROPHILS % 66.2 % (38.7-80.0); PLATELET COUNT 254 x10e3/uL (140-360); RED BLOOD COUNT 2.96 x10e6/uL (4.3-5.7); RED CELL DISTRIBUTION WIDTH 13.5 % (11.7-14.4)
[2019-05-18] MEDS ORDERED: DEXTROSE 50% SYRINGE 50 ML IV ONE (08:00)
[2019-05-18 08:05] LABS: ALBUMIN 3.6 g/dL (3.5-5.0); ANION GAP 19.6 mmol/L (8-16); CALCIUM 10.5 mg/dL (8.4-10.2); CREATININE, SERUM 5.97 mg/dL (0.72-1.25); POTASSIUM 3.6 mmol/L (3.5-5.1)
--- OUTSIDE RECORDS SUMMARY | 2019-05-18 09:36 | XMS REPORT | Clinical Summary ---
Author Author [facility] Organization [facility] Address Unknown Phone Unavailable Care Team Providers Care Livestock Trucker Name Role Phone Shay Owusu MD PCP [...] Lot Implanted Type Area Manufactur er 09/23/2020 [id number] / [id number] / [id number] Graft Vasclr [place]-Zan Stdwl 40cm Vascular Left: Arm, W L GORE 6mm - [id number] - [id number] Graft Lower Implanted: Qty: 1 on 02/19/2017 by Mike Lopez MD at [facility] Results Not on fileafter 05/17/2018 Insurance Type Payer Benefit Subscriber ID Effective Phone Address Plan / Dates Group HMO AETNA AETNA xxxxxxxxxx 1991- HMO,POS,EP Present O, MC/EC Medicare MEDICARE MEDICARE xxxxxxxxxx 2007-P [place], PART A AND resent [place] B Advance Directives For more information, please contact: [phone] Patient Nurses' Registry Director Explanation Type Date Recorded Advance Directives, Living Will and Medical Power of Inventory Administrator
--- OUTSIDE RECORDS SUMMARY | 2019-05-18 09:37 | XMS REPORT | Clinical Summary ---
Author Author FABIOLA [facility] Organization [facility] Address Unknown Phone Unavailable Care Team Providers Care Wet Cotton Feeder Name Role Phone Shay Owusu PCP Allergies [...] Type Area Manufactur er 01/17/2017 [id number] / [id number] / Argueta Eloise 3 Transcatheter Valves N/A: [...] file. For more i nformation, please contact: [address] [address] Date Inactivated Comments Code Status Date Activated 04/18/2016 3:52 AM Full Code 04/15/2016 8:35 AM This code status was determined by: Patient 04/11/2016 4:29 PM Full Code 04/10/2016 5:32 AM This code status was determined by: Patient
--- NOTE | 2019-05-18 10:26 | NUR ---
pt states he gets dialysis mwf; aware
--- NOTE | 2019-05-18 10:56 | NUR ---
pt signed consent for dialysis
--- NOTE | 2019-05-18 12:28 | NUR ---
79YO MALE ADMITTED FROM ER FOR ADVERSE MED REACTIONS LABS:WBC-7.68 ,HGB- 10.7,GLUCOSE - 114 NEG BLOOD CULTURE ASSESSMENT FINDINGS : PT ON ER STRETCHER ON AIR CUSHION REPORTED BY PT AND FAMILY HE HAD A FALL AT HOME THERE WERE MULTIPLE DRY ESCHAR AREAS WITH NEW HEALING SHAREE SKIN RT LOWER EXTREM ,KNEE AND ELBOW RECOMMENDATIONS : NURSING TO CONTINUE TO MONITOR PROTECT AND OFFLOAD PT SKIN AND WT BEARING WHILE ON STRETCHER APPLY VENELEX OINTMENT DAILY TO RIGHT FOOT ,RT KNEE AND RT ELBOW ESCHAR AREAS
--- NOTE | 2019-05-18 13:16 | NUR ---
RECEIVED PATIENT FROM ER. PATIENT A/O X3, EVEN RESPIRATIONS ON RA. BOWEL SOUNDS PRESENT. NO EDEMA. LEFT FA GRAFT DIALYSIS ACCESS. RIGHT AC 18 GAUGE AND RIGHT WRIST 20 GAUGE IV SL. TELEMETRY #1 SR. PATIENT AMBULATES WITH WALKER AND ASSISTANCE. LEFT HAND ABRASION, RIGHT 2/3RD TOE SCAB, RIGHT ELBOW SCAB. WOUND CARE ROUNDED ON PATIENT IN ER. VS STABLE. BS:158. CALL LIGHT IN REACH, BED LOW, WHEELS LOCKED, SIDE RAILS X2. WILL CONTINUE TO MONITOR PATIENT.
[2019-05-18 13:48] VITALS: BP 151/86
[2019-05-18 13:50] VITALS: BP 151/86
[2019-05-18 13:55] VITALS: BP 151/86
[2019-05-18 15:39] VITALS: BP 186/73
[2019-05-18] MEDS: SEVELAMER CARBONATE 800 MG TAB PO SCH ×2 (15:41→19:55)
[2019-05-18] MEDS: GABAPENTIN 100 MG CAP PO SCH (16:13)
[2019-05-18] MEDS ORDERED: CALCIUM ACETATE 667 MG GELCAP PO SCH (17:00)
[2019-05-18] MEDS ORDERED: DEXTROSE 50% SYRINGE 50 ML IV PRN (18:00)
[2019-05-18] MEDS ORDERED: INSULIN LISPRO 100 UNIT/1 ML 3ML VIAL SQ SCH (18:30)
--- NOTE | 2019-05-18 18:45 | NUR ---
Received bedside report from day RN. The patient is sitting up on the bed, not in distress. The patient stated he does not want to do the dialysis 1 am in the morning but later in the morning preferably around [address] Muller if okay. Call light within reach, bed alarm on, bed height low, side rails up x2 and wheels lock.
[2019-05-18 19:30] VITALS: BP 186/73
[2019-05-18 19:38] VITALS: BP 177/74
[2019-05-18] MEDS: INSULIN LISPRO 100 UNIT/1 ML 3ML VIAL SQ SCH (19:54)
--- NOTE | 2019-05-18 20:33 | Consultation ---
DATE OF CONSULTATION: 05/18/2019 HISTORY OF PRESENT ILLNESS: Mr. Jimmy Fairchild is a 79-year-old gentleman, known to our Nephrology Service, has been on dialysis due to diabetic kidney disease and end-stage renal disease, has a left arm AV graft, history of hypertension, who presented with hypoglycemia. He has had multiple episodes now and each time he has fallen and was found to have hypoglycemia. At this time around it was 19. He apparently lives by himself. His 2 sons are by bedside, who check on him on a routine basis, but the patient pretty much does he takes his own medications and cooks. He is currently awake, alert, and oriented x3. No apparent distress. Denies headache, fever, chills, chest pain, or shortness of breath. He is scheduled for dialysis today. LABORATORY DATA: Labs show white count 7.6, hemoglobin 10.7, potassium 3.6, bicarbonate 27, creatinine 5.9, and calcium 10.5. ALLERGIES: CEPHALEXIN. CURRENT MEDICATIONS: The patient is on amlodipine 10 mg daily, aspirin 81 mg daily, atenolol 50 mg p.o. daily, calcium acetate, PhosLo, which I am going to stop because of hypercalcemia, furosemide 20 mg daily, gabapentin 100 mg b.i.d., Renagel 800 mg p.o. t.i.d. with meals, and Zocor 20 mg p.o. daily. SOCIAL HISTORY: As above. Does not smoke or drink. FAMILY HISTORY: Diabetes. PHYSICAL EXAMINATION: GENERAL: Awake, alert, and oriented x3. No apparent distress. VITAL SIGNS: Blood pressure 144/54, pulse rate 79, and afebrile. HEAD AND NECK: Cornea clear. Mucosa moist. Neck veins flat. LUNGS: Relatively clear. HEART: S1 and S2 audible. ABDOMEN: Otherwise soft and nontender. No apparent visceromegaly. EXTREMITIES: Lower extremity examination shows no edema. IMPRESSION AND PLAN: 1. End-stage renal disease. Laboratory tests show a creatinine of 5.97. His potassium level is 3.6, last blood sugar 110, hemoglobin 10.7. 2. Underlying hypoglycemia. 3. Hypertension. No evidence of fluid overload. Discussed with Dr. Bey. PhosLo discontinued. Hypercalcemia noted, mostly iatrogenic. I will arrange for dialysis today. Discussed with both sons. Discussed with Dr. Bey. MD SUKHDEV Fernandez/KENYON /[id number]
[2019-05-18] MEDS ORDERED: SIMVASTATIN 20 MG TAB PO SCH (21:00)
[2019-05-18] MEDS ORDERED: SODIUM CHLORIDE 0.9% 1000ML 2,000 ML ONE (21:12)
[2019-05-19 00:15] VITALS: BP 162/71
[2019-05-19 04:00] VITALS: BP 166/72
--- NOTE | 2019-05-19 06:11 | NUR ---
The patient stated he would like to go home by tomorrow morning to take care of the bills otherwise he will be facing late charges and he want to do the dialysis at his preferred location. RN instructed to voice his concerns with the attending physician. RN will pass on the communication with the day RN.
[2019-05-19 06:46] LABS: BASOPHILS # (AUTO) 0.1 (0.0-0.1); BASOPHILS % 0.8 % (0.0-1.0); EOSINOPHILS # (AUTO) 0.2 (0.0-0.4); EOSINOPHILS % 2.9 % (0.0-6.0); HEMATOCRIT 31.7 % (38.2-49.6); HEMOGLOBIN 10.8 g/dL (14.0-18.0); LYMPHOCYTES # (AUTO) 1.9 (1.0-3.2); LYMPHOCYTES % 30.1 % (18.0-39.1); MEAN CORPUSCULAR HGB CONC 34.1 g/dL (31-35); MEAN CORPUSCULAR VOLUME 99.7 fL (81-99); MONOCYTES # (AUTO) 0.6 (0.2-0.8); MONOCYTES % 9.9 % (4.4-11.3); NEUTROPHILS # (AUTO) 3.6 (2.1-6.9); PLATELET COUNT 190 x10e3/uL (140-360); RED BLOOD COUNT 3.18 x10e6/uL (4.3-5.7); RED CELL DISTRIBUTION WIDTH 13.2 % (11.7-14.4)
[2019-05-19] MEDS ORDERED: INSULIN GLARGINE 100 UNITS/ML VIAL SQ SCH (07:00)
--- NOTE | 2019-05-19 07:05 | NUR ---
RECEIVED PATIENT AWAKE RESTING IN BED NO S/S OF DISTRESS. BED LOW, WHEELS LOCKED, SIDE RAILS X2. CALL LIGHT IN REACH WILL CONTINUE TO MONITOR PATIENT.
[2019-05-19 07:08] LABS: ANION GAP 16.1 mmol/L (8-16); CALCIUM 9.6 mg/dL (8.4-10.2); CREATININE, SERUM 4.07 mg/dL (0.72-1.25); POTASSIUM 4.1 mmol/L (3.5-5.1)
[2019-05-19] MEDS: SEVELAMER CARBONATE 800 MG TAB PO SCH ×2 (08:30→15:05)
[2019-05-19] MEDS: GABAPENTIN 100 MG CAP PO SCH (08:30)
[2019-05-19 08:38] VITALS: BP 145/64
[2019-05-19] MEDS: INSULIN LISPRO 100 UNIT/1 ML 3ML VIAL SQ SCH ×4 (08:48→12:13)
[2019-05-19] MEDS ORDERED: ASPIRIN 81 MG CHEW TAB PO SCH (09:00)
[2019-05-19] MEDS ORDERED: FUROSEMIDE 20 MG TAB PO SCH (09:00)
[2019-05-19] MEDS ORDERED: AMLODIPINE BESYLATE 10 MG TAB PO SCH (09:00)
[2019-05-19] MEDS ORDERED: ATENOLOL 50 MG TAB PO SCH (09:00)
[2019-05-19] MEDS ORDERED: BALSAM PERU/CASTOR OIL 60 GM OINT...G. TP SCH (09:00)
[2019-05-19 09:03] VITALS: BP 145/64
--- NOTE | 2019-05-19 10:01 | NUR ---
PATIENT INSISTING HE WANTS TO LEAVE. SAYS HE WILL STAY FOR [address] DHILLON FOR DISCHARGE CLEARANCE.
--- NOTE | 2019-05-19 10:26 | NUR ---
SPOKE WITH DR. DHILLON. SAID PATIENT NEEDS TO WAIT UNTIL HE SEES HIM TO GO HOME.
[2019-05-19 12:20] VITALS: BP 158/67
[2019-05-19] MEDS ORDERED: LANTUS SQ (14:10)
[2019-05-19] MEDS ORDERED: HUMALOG KWIKPEN SQ (14:11)
--- NOTE | 2019-05-19 14:30 | NUR ---
REMOVED RIGHT AC IV AND RIGHT WRIST IV. CATHETER TIP INTACT ON REMOVAL AND PRESSURE DRESSING APPLIED.
--- NOTE | 2019-05-19 15:12 | Discharge Summary ---
HOSPITAL COURSE: Mr. Fairchild is a 79-year-old man with history of coronary artery disease, valve replacement, diabetes type 2, end-stage renal disease, on hemodialysis, who states that at 5 in the morning, he fell on the floor and he was confused and he was sweating profusely. They called EMS. Blood sugar was 19, so the patient was brought to the emergency room. Dr. Bey is going to see the patient today. He already changed his insulin. He was on the a Humulin R 500 units. So, the insulin has been any changed. The blood sugar has been stable since he has been here. PHYSICAL EXAMINATION: GENERAL: He is awake and alert. VITAL SIGNS: Temperature is 96.6, blood pressure is 145/64. HEART: Regular rate. LUNGS: Clear to auscultation. ABDOMEN: Soft. LABORATORY DATA: On the blood work, white count 6.45, hemoglobin 10.8, hematocrit 31.8. Glucose today 216, creatinine is 4.07. Hepatitis profile came back, exam is pending, so far is negative. Chest x-ray done in the emergency room showed possible patchy infiltrate, but the patient is afebrile. That was in his prior admission. Head CT done in the prior admission and showed no acute intracranial abnormalities. ASSESSMENT: 1. Diabetes type 2 with hypoglycemia. 2. 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 3. End-stage renal disease. 4. Hemodialysis dependence. 5. Coronary artery disease, status post coronary artery bypass graft. 6. History of valve replacement. 7. Hypertension. 8. Hyperlipidemia. PLAN: At present time is to continue treatment. The patient is on dialysis 3 times a week. ADA diet. Insulin as per Dr. Bey. Continue other home medications. If the patient gets cleared by district manager, he is going to be able to go home today. Follow up as an outpatient with residential direct support professional, with Dr. Bey, and with his PCP. All this was discussed with the patient. All questions were answered to satisfaction. Please see home medication reconciliation list. MD TA Ribera/MODL /[id number]
--- NOTE | 2019-05-19 15:17 | NUR ---
PATIENT DISCHARGED FROM FACILITY. PATIENT GATHERED ALL PERSONAL BELONGINGS, DISCHARGE INSTRUCTIONS, AND FOLLOW UP INFORMATION. LEFT UNIT IN WHEELCHAIR AND WENT HOME VIA PRIVATE AUTO.
--- NOTE | 2019-05-19 16:07 | Consultation ---
DATE OF CONSULTATION: 05/19/2019 Endocrine Consultation Thank you very much for referring this patient. HISTORY OF PRESENT ILLNESS: This 79-year-old gentleman, who is very well known to me from his previous hospital admissions. The patient is a known case of diabetes mellitus type 2 with multiple complications including end-stage renal failure on chronic hemodialysis. The patient has an extreme insulin resistance in the past and he has been on U-500 insulin 9 to 10 units three times a day. In the last few weeks, the patient had two episodes of hypoglycemia with altered mental status. He was brought to the emergency room. His blood sugars were low at the time of admission, presently they are 208 to 130 mg/dl. The patient also has history of hypertension. PHYSICAL EXAMINATION: GENERAL: Today, the patient is alert, awake, little bit apprehensive. VITAL SIGNS: Heart rate is around 78, blood pressure 130/80 mmHg. HEENT: Essentially unremarkable. Thyroid is palpable. Clinically, he is near euthyroid. CHEST: Bilateral vesicular breathing. No rales. CARDIAC: First and second heart sounds. There is no third or fourth heart sounds. There is ejection systolic murmur grade 2/6. EXTREMITIES: The patient has evidence of diabetic sensorimotor neuropathy in both lower extremities and bilateral pedal edema. LABORATORY DATA: His BUN and creatinine are 15 and 4.07. CLINICAL IMPRESSION: 1. Hypoglycemia, multifactorial. 2. End-stage renal failure, on chronic hemodialysis. 3. Diabetes mellitus type 2, uncontrolled with complications. 4. Hypertension. PLAN: At this time is to discontinue the U-500 insulin. Start him on the Lantus and Humalog insulin. Monitor his blood sugars. If the patient is discharged, the patient can be followed with me in about 2 to 3 weeks. Thank you for referring this patient. I will be following this patient with you. MD JUAN Mosher/SHELLEYL /[id number] ANA
== END 2019-05-19 15:17 | disposition home or self-care (01) ==
LOC: ER 07:17 → INTOOBSV 09:35 → ERHOLD 09:35 → MED/SURG 13:35
PROVIDERS: ADMIT Internal Medicine; ATTEND Internal Medicine
DX: E11.649 Type 2 diabetes mellitus with hypoglycemia without coma (principal); R41.82 Altered mental status, unspecified; E11.22 Type 2 diabetes mellitus with diabetic chronic kidney disease; Z88.8 Allergy status to other drugs, medicaments and biological substances; I25.10 Atherosclerotic heart disease of native coronary artery without angina pectoris; I12.0 Hypertensive chronic kidney disease with stage 5 chronic kidney disease or end stage renal disease; N18.6 End stage renal disease; Z99.2 Dependence on renal dialysis; Z95.2 Presence of prosthetic heart valve; Z95.1 Presence of aortocoronary bypass graft; E78.5 Hyperlipidemia, unspecified; Z96.653 Presence of artificial knee joint, bilateral; Z79.4 Long term (current) use of insulin
CPT/HCPCS: 36415 ×2; 80048; 80053; 82948 ×2; 85025 ×2; 86704; 86706; 87350; 90935; 93005; 99284; G0378 ×2; J7030

== ENCOUNTER 2019-12-04 11:20 | Inpatient (IN) | payer MEDICARE ==
[~2019-12-04] VITALS: Ht 182.9 cm; Wt 89.2 kg
[~2019-12-04 11:20] MED LIST changes: +HUMALOG KWIKPEN SQ; +LANTUS SQ
[2019-12-04] MEDS ORDERED: SODIUM CHLORIDE 0.9% 250ML 250 ML IV ONE (12:15)
--- NOTE | 2019-12-04 13:43 | Diagnostic Imaging Report ---
Examination: CT head without contrast Clinical Indication: Weakness. Fall. Confusion. Altered mental status. Technique: Transaxial noncontrast images from the skull base through the vertex were obtained. Sagittal and coronal reformatted images were done. Dose modulation, iterative reconstruction, and/or weight based adjustment of the mA/kV was utilized to reduce the radiation dose to as low as reasonably achievable. Comparison: Head CT performed September 28, 2019 and May 12, 2019. Findings: Scalp: No abnormalities. Bones: Intact. No fractures. No blastic or lytic lesions. Brain sulci: Mild volume loss for patient's age, unchanged. Ventricles: No hydrocephalus. Extra-axial space: No abnormalities. Parenchyma: Again demonstrated are patchy and confluent areas of low-attenuation within subcortical and periventricular white matter, nonspecific, but could represent microvascular ischemic disease. No masses, hemorrhage, or acute or chronic cortical based vascular insults. Suprasellar region: No abnormalities. Craniocervical junction: The foramen magnum is patent. No Chiari one malformation. Incidental findings: Atherosclerotic calcification of the cavernous and supraclinoid internal carotid arteries. Impression: 1. No new or acute intracranial abnormality when compared to prior head CT performed September 28, 2019. 2. Unchanged chronic microvascular ischemic change and volume loss. Signed by: Dr. Juanita Dasilva M.D. on 12/04/2019 1:39 PM
--- NOTE | 2019-12-04 13:46 | Diagnostic Imaging Report ---
Examination: CT CERVICAL SPINE WO CONTRAST HISTORY:Neck injury and pain after fall. COMPARISON:None. TECHNIQUE: Multidetector helical axial images were obtained without contrast from the foramen magnum to T1. Coronal and sagittal reformatted images were done. Bone and soft tissue windows were evaluated. Dose modulation, iterative reconstruction, and/or weight based adjustment of the mA/kV was utilized to reduce the radiation dose to as low as reasonably achievable. FINDINGS: Alignment:Normal alignment and lordosis. Vertebrae: Normal height and density. No acute fracture, infection or neoplasm. Disc space heights: Moderate to severe height loss at C5-C6 and C6-C7. Caliber of spinal canal: Developmentally normal. Posterior fossa and craniocervical junction: Foramen magnum patent. No Chiari 1 malformation. Soft tissues: Atherosclerotic calcification of the bilateral carotid arteries. Degenerative changes: Severe joint space narrowing at C1-C2. Diffuse disc osteophyte complex at C5-C6 and C6-C7 with ijaz-jq-[id number] canal stenosis and severe bilateral neural foraminal narrowing. Visualized lung apices: Patchy airspace opacity in the right upper lobe. IMPRESSION: 1. No acute abnormality. 2. Degenerative changes as above. 3. Patchy airspace opacity in the right upper lobe. Signed by: Dr. Juanita Dasilva M.D. on 12/04/2019 1:42 PM
--- NOTE | 2019-12-04 13:58 | Diagnostic Imaging Report ---
EXAMINATION: CHEST SINGLE (PORTABLE) INDICATION: Fall. COMPARISON: 05/12/2019. FINDINGS: LINES/TUBES:Right-sided dual-lumen dialysis catheter with distal tip projected on the right atrium. LUNGS:The lung volumes are low. Mild prominence of the pulmonary vasculature bilaterally. PLEURA:No pleural effusion or pneumothorax. MEDIASTINUM:The cardiac silhouette is mildly enlarged. Considerations of the aortic arch. Median sternotomy wires. BONES/SOFT TISSUES:Partially imaged sclerotic area at the right proximal humerus again observed. It may represent an enchondroma or a calcified bone infarct. ABDOMEN:No free air under the diaphragm. IMPRESSION: Mild bilateral pulmonary venous congestion. Signed by: Dr. Alyssia Talley M.D. on 12/04/2019 1:55 PM
[2019-12-04 14:22] LABS: STREPTOCOCCUS GRP A ANTIGEN NEGATIVE (NEGATIVE)
[2019-12-04 14:25] LABS: INFLUENZAE A&B ANTIGEN (RAPID) NEGATIVE (NEGATIVE)
[2019-12-04 14:41] LABS: BILIRUBIN,URINE NEGATIVE (NEGATIVE); CLARITY,URINE HAZY (CLEAR); COLOR,URINE YELLOW (YELLOW); KETONES,URINE TRACE (NEGATIVE); LEUKOCYTE ESTERASE ,URINE NEGATIVE (NEGATIVE); NITRITE,URINE NEGATIVE (NEGATIVE); PROTEIN,URINE DIPSTICK >=300 (NEGATIVE); URINE UROBILINOGEN 0.2 mg/dL (0.2 - 1)
[2019-12-04 14:43] LABS: BACTERIA,URINE MODERATE /HPF; RBC,URINE >50 /HPF (0-5)
[2019-12-04 14:55] LABS: BASOPHILS % 0.3 % (0.0-1.0); HEMATOCRIT 33.4 % (38.2-49.6); HEMOGLOBIN 10.6 g/dL (14.0-18.0); LYMPHOCYTES # (AUTO) 1.1 (1.0-3.2); MEAN CORPUSCULAR HGB CONC 31.7 g/dL (31-35); MEAN CORPUSCULAR VOLUME 97.7 fL (81-99); MONOCYTES # (AUTO) 0.8 (0.2-0.8); MONOCYTES % 10.5 % (4.4-11.3); NEUTROPHILS # (AUTO) 5.9 (2.1-6.9); NEUTROPHILS % 74.3 % (38.7-80.0); PLATELET COUNT 70 x10e3/uL (140-360); RED BLOOD COUNT 3.42 x10e6/uL (4.3-5.7); RED CELL DISTRIBUTION WIDTH 14.8 % (11.7-14.4)
[2019-12-04 15:07] LABS: ALBUMIN 2.3 g/dL (3.5-5.0); ALBUMIN/GLOBULIN RATIO 0.6 (0.8-2.0); CALCIUM 8.7 mg/dL (8.4-10.2); CREATININE, SERUM 6.8 mg/dL (0.72-1.25); MAGNESIUM 1.8 MG/DL (1.3-2.1)
[2019-12-04] MEDS ORDERED: PIPERACILLIN/TAZO 2.25 GM 50 ML IV ONE (15:30)
[2019-12-04] MEDS ORDERED: AZITHROMYCIN 500MG/NS 250 ML 250 ML IV SCH (15:45)
--- NOTE | 2019-12-04 15:46 | NUR ---
still awaiting chemistries and cardiac enzymes
[2019-12-04 15:50] LABS: INR 1.01; PROTHROMBIN TIME 13.9 seconds (11.9-14.5)
[2019-12-04 15:52] LABS: PARTIAL THROMBOPLASTIN TIME 46.4 seconds (23.8-35.5)
[2019-12-04 15:54] LABS: ANION GAP 18.4 mmol/L (8-16); POTASSIUM 4.4 mmol/L (3.5-5.1)
[2019-12-04 15:55] LABS: CREATINE KINASE MB 2.4 ng/mL (0-5.0)
[2019-12-04] MEDS ORDERED: MORPHINE SULFATE 2 MG/ML SYR 1ML IV PRN (16:30)
[2019-12-04] MEDS ORDERED: ONDANSETRON HCL INJ 2MG/ML 2ML 2 MG/ML VIAL IV PRN (16:30)
[2019-12-04 16:43] LABS: AMMONIA 47 UG/DL (31-123)
[2019-12-04] MEDS ORDERED: CEFTRIAXONE SOD 1 GM/NS 50 ML 50 ML IV SCH (16:45)
[2019-12-04] MEDS ORDERED: ASPIRIN 81 MG CHEW TAB PO ONE (17:00)
[2019-12-04] MEDS ORDERED: CLOPIDOGREL BISULFATE 75 MG TAB PO ONE (17:00)
[2019-12-04] MEDS ORDERED: HEPARIN 25,000 UNIT 1,000 UNIT in DEXTROSE 5% 250ML 250 ML IV SCH (17:00)
[2019-12-04] MEDS ORDERED: HEPARIN SOD (PORCINE) 5,000 UNIT/ML VIAL IV ONE (17:00)
--- NOTE | 2019-12-04 17:11 | History and Physical ---
CHIEF COMPLAINT: "I have had a headache for a week and I do not feel well." HISTORY OF PRESENT ILLNESS: This is a 79-year-old man, who presents to [facility] Emergency Room with a 1-week history of an intense headache. The patient states also last week he has not felt well. In the emergency room, the patient was found to have a hemoglobin of 10.6 g/dL. The patient's BUN and creatinine were 37 and 6.8 respectively, but he has end-stage renal disease and undergoes hemodialysis 3 times a week. The patient states his last hemodialysis session was on Thursday; December 02, 2019. However, in the emergency room, the patient was found to have an elevated troponin I level of 3.257. Serum bicarbonate was low at 21. Urinalysis revealed greater than 50 red blood cells per high-power field and 6- 10 white blood cells per high-power field as well as moderate bacteria. PH was 7.5. Influenza type A and B antigen were negative in the emergency room. The patient underwent a chest x-ray in the emergency room, which revealed mild bilateral pulmonary venous congestion. The patient underwent a brain CT also in the emergency room that did not reveal any acute intracranial abnormality. A 12-lead EKG performed in the emergency room revealed findings consistent with left ventricular hypertrophy, but no obvious ST elevation or depression were appreciated. CT cervical spine actually revealed right upper lobe opacity. REVIEW OF SYSTEMS: GENERAL: The patient states he lost 30 pounds over the last few months unintentionally. Denies any fever or chills, but states he has been very weak over the last seven days. HEENT: He complains of intense bilateral temporal headache for the last week. Denies any visual changes. Denies any neck stiffness. CARDIOVASCULAR/RESPIRATORY: Denies any chest pain or cough, but states he does become short of breath quite easily and has become worse for the last week. GI: No nausea, vomiting, diarrhea, or constipation. : The patient states he urinates minimally and he is on hemodialysis. NEUROMUSCULAR: The patient complains of global weakness over the last week. Denies any focal limb weakness or numbness. The patient states he still ambulates. ALLERGIES: KEFLEX. HOME MEDICATIONS: 1. Allopurinol 100 mg daily. 2. Amlodipine 10 mg daily. 3. Aspirin 81 mg daily. 4. Atenolol 50 mg daily. 5. Calcium acetate 667 mg b.i.d. 6. Furosemide 20 mg daily. 7. Gabapentin 100 mg b.i.d. 8. Zemplar 1 mcg p.o. daily. 9. Sevelamer 800 mg t.i.d. 10. Simvastatin 20 mg at bedtime. 11. Humalog insulin 15 units subcutaneous t.i.d. with meals. 12. Lantus insulin 20 units subcutaneous twice a day. FAMILY HISTORY: Multiple family members have coronary artery disease. SURGICAL HISTORY: 1. Coronary artery bypass grafting. 2. Bilateral total knee replacements. 3. Left upper extremity AV fistula placement (nonfunctional). 4. Right subclavian tunneled hemodialysis catheter placement. 5. Left heart catheterization in February 2019, which revealed severe multivessel coronary artery disease status post bypass surgery with patent grafts (no percutaneous intervention performed). 6. Left heart catheterization performed in February 2019 also revealed severe peripheral artery disease. SOCIAL HISTORY: This man is single. He lives alone. No history of tobacco or alcohol use. He is retired. PAST MEDICAL HISTORY: 1. Coronary artery disease (history of coronary artery bypass grafting). 2. Peripheral artery disease. 3. Type 2 diabetes. 4. Hypertensive heart disease. 5. Dyslipidemia. PHYSICAL EXAMINATION: GENERAL: He is awake. He is alert, but he looks very ill and frail. It is difficult for him to provide a coherent history of his medical issues and chief complaint. He is pleasant and cooperative to exam. He does look very weak. VITAL SIGNS: Height is 6 feet 0 inches, weight is 230 pounds, BMI is 31, blood pressure 178/74, pulse 72, respiratory rate 18, oxygen saturation 97% on room air, temperature 98.4. INTEGUMENT: Skin is warm and dry. He has obvious pallor. No jaundice or diaphoresis. No skin breakdown or ulceration is appreciated. HEENT: Anterior sclerae with moist mucous membranes. NECK: Supple. No evidence of jugular venous distention. CARDIOVASCULAR: Distant heart sounds. Regular rate and rhythm. No S3 gallop. LUNGS: No rales. No rhonchi. Coarse breath sound bilaterally, right worse than left. SPINE/TORSO: The patient has a right subclavian tunneled hemodialysis catheter in place. ABDOMEN: Benign. Normal bowel sounds. Nontender. No hepatosplenomegaly appreciated. EXTREMITIES: No edema or deformity, but he has evidence of previous surgery to the bilateral knees as evidenced by surgical scars. No edema in the legs. NEUROLOGIC: Intact. No gross focal deficits appreciated. DIAGNOSES: 1. Qmq-NT-vgmtmzsh myocardial infarction. 2. Right upper lobe pneumonia, likely gram negative jes. 3. Severe multivessel coronary artery disease (history of coronary artery bypass grafting). 4. Urinary tract infection. 5. Peripheral artery disease (severe). 6. End-stage renal disease. 7. Acute on chronic systolic/diastolic congestive heart failure. PLAN: 1. We will start intravenous heparin. 2. Consult Cardiology and order 2D echocardiogram. 3. Follow cardiac enzymes. 4. We will consult Nephrology since the patient most likely needs to be dialyzed since he is in acute heart failure. 5. Follow urine and blood cultures. 6. We will start intravenous Zosyn and azithromycin for the patient's urinary tract infection and pneumonia. 7. Glucose control. I spent 75 minutes in the care of this critical care patient. MD GABY Marmolejo/KENYON /[id number] ANA
[2019-12-04] MEDS ORDERED: SODIUM CHLORIDE 0.9% 1000ML 1,000 ML ONE (17:28)
[2019-12-04] MEDS: FAMOTIDINE 20 MG/2 ML VIAL IV SCH (17:45)
[2019-12-04] MEDS: GABAPENTIN 100 MG CAP PO SCH (17:59)
[2019-12-04] MEDS: SEVELAMER CARBONATE 800 MG TAB PO SCH (17:59)
[2019-12-04] MEDS: INSULIN LISPRO 100 UNIT/1 ML 3ML VIAL SQ SCH (17:59)
[2019-12-04] MEDS: CALCIUM ACETATE 667 MG GELCAP PO SCH (18:14)
[2019-12-04] MEDS: AZITHROMYCIN 500MG/NS 250 ML 250 ML IV SCH (18:44)
--- NOTE | 2019-12-04 18:49 | NUR ---
ARRIVED VIA STRETCHER FROM ER , UPON ARRIVAL TO ROOM, PT VOMITING LIQUID GREEN EMESIS, TRANSFERRED TO BED, ASSISTED TO CLEAN UP, HEPARIN INFUSING AT 10ML/HR, AZITHROMYCIN INFUSING , ALL STARTED IN ER, DENIES PAIN AT THIS TIME, VS UPON ARRIVAL 98.3, 95% RA, 82, 162/69, 22 RR, ORIENTED TO ROOM, CALL LIGHT WITHIN REACH
[2019-12-04 19:27] VITALS: BP 154/65
[2019-12-04 19:38] VITALS: BP 154/65
[2019-12-04] MEDS ORDERED: ACETAMINOPHEN 325 MG TAB PO PRN (20:00)
[2019-12-04] MEDS: SIMVASTATIN 20 MG TAB PO SCH (20:15)
[2019-12-04] MEDS: INSULIN GLARGINE 100 UNITS/ML VIAL SQ SCH (20:43)
--- NOTE | 2019-12-04 20:44 | NUR ---
PATIENT HAS EPISODES OF NAUSEA AND VOMITING, NOTED CONFUSION AT TIMES,PER REPORTS PATIENT IS . ALERT TO PERSON AND PLACE ONLY, VITALS CHECKED, BED ALARM IS ON, HEPARIN DRIP RUNNING AT 1000 UNITS/HR. WILL CONTINUE TO MONITOR.
[2019-12-04 22:02] VITALS: BP 157/109
[2019-12-04 22:22] LABS: CHOL/HDL RATIO 5.4 (3.9-4.7)
[2019-12-05] VITALS (12 sets, daily range): BP systolic 109–185; BP diastolic 51–72
--- NOTE | 2019-12-05 00:36 | NUR ---
LAB CALLED, PTT IS 112,3; HOLD HEPARIN DRIP FOR 30 MINS AND WILL DECREASE IT BY 150UNITS/HR ORDERED.
[2019-12-05 00:38] LABS: CREATINE KINASE MB 2.1 ng/mL (0-5.0)
--- NOTE | 2019-12-05 01:03 | NUR ---
CALLED AND SPOKE WITH DR Arlette WONG, MADE HIM AWARE OF THE LAST CARDIAC MARKERS. THE MD ORDERED PATIENT TO BE NPO FOR HEART CATH IN THE MORNING.
--- NOTE | 2019-12-05 01:10 | NUR ---
STARTED HEPARIN DRIP AT 850 UNITS/HR.
--- NOTE | 2019-12-05 02:46 | NUR ---
CALLED AND SPOKE TO DR MEGAN WONG, PATIENT IS IN AFIB HR IS ON 60S 70S, ALSO NOTIFIED PATIENT HAD TEMP AND CANT TAKE ANY PO MEDS SINCE HE IS NPO, NO NEW ORDERS FROM DR WONG, GIVE PT COLD COMPRESS. WILL CONTINUE TO MONITOR.
[2019-12-05] MEDS: FAMOTIDINE 20 MG/2 ML VIAL IV SCH ×2 (04:28→17:32)
[2019-12-05] MEDS: PIPERACILLIN/TAZO 2.25 GM 50 ML IV SCH ×3 (04:28→23:23)
[2019-12-05 06:12] LABS: BASOPHILS % 0.1 % (0.0-1.0); HEMATOCRIT 31.3 % (38.2-49.6); HEMOGLOBIN 10.6 g/dL (14.0-18.0); LYMPHOCYTES # (AUTO) 1.4 (1.0-3.2); MEAN CORPUSCULAR HGB CONC 33.9 g/dL (31-35); MEAN CORPUSCULAR VOLUME 91.5 fL (81-99); MONOCYTES # (AUTO) 0.9 (0.2-0.8); MONOCYTES % 11.2 % (4.4-11.3); NEUTROPHILS # (AUTO) 5.9 (2.1-6.9); PLATELET COUNT 77 x10e3/uL (140-360); RED BLOOD COUNT 3.42 x10e6/uL (4.3-5.7); RED CELL DISTRIBUTION WIDTH 14.8 % (11.7-14.4)
[2019-12-05 06:36] LABS: CREATINE KINASE MB 1.5 ng/mL (0-5.0)
--- NOTE | 2019-12-05 06:44 | NUR ---
PTT RESULT IS 97.4, DECREASE HEPARIN DRIP BY 100 UNITS/HR; NOW RUNNING 750 UNITS/HR.
[2019-12-05 06:58] LABS: CHOL/HDL RATIO 4.9 (3.9-4.7)
[2019-12-05 07:08] LABS: ALBUMIN/GLOBULIN RATIO 0.6 (0.8-2.0); ANION GAP 14.9 mmol/L (8-16); CALCIUM 8.2 mg/dL (8.4-10.2); CREATININE, SERUM 7.54 mg/dL (0.72-1.25); POTASSIUM 3.9 mmol/L (3.5-5.1)
[2019-12-05] MEDS: SEVELAMER CARBONATE 800 MG TAB PO SCH ×3 (07:30→16:30)
[2019-12-05] MEDS: INSULIN LISPRO 100 UNIT/1 ML 3ML VIAL SQ SCH ×3 (07:32→16:12)
[2019-12-05] MEDS: CALCIUM ACETATE 667 MG GELCAP PO SCH ×2 (07:32→17:00)
[2019-12-05] MEDS: ASPIRIN 81 MG ENTERIC COATED PO SCH (07:32)
[2019-12-05] MEDS: GABAPENTIN 100 MG CAP PO SCH (07:33)
[2019-12-05] MEDS: ATENOLOL 50 MG TAB PO SCH (07:33)
[2019-12-05] MEDS: AMLODIPINE BESYLATE 10 MG TAB PO SCH (07:33)
[2019-12-05] MEDS: ALLOPURINOL 100 MG TAB PO SCH (07:34)
[2019-12-05] MEDS: INSULIN GLARGINE 100 UNITS/ML VIAL SQ SCH ×2 (07:34→20:46)
--- NOTE | 2019-12-05 08:55 | Diagnostic Imaging Report ---
Chest, one view History: Pneumonia Comparison: 06/01/2019 Findings: Mild bilateral interstitial opacities. Mild cardiomegaly. Previous median sternotomy. A right-sided hemodialysis catheter terminates within the high right atrium. No pleural effusion or pneumothorax. Impression: Mild bilateral interstitial opacities, which could reflect pulmonary venous congestion. Signed by: Rah Reece MD on 12/05/2019 8:51 AM
[2019-12-05] MEDS ORDERED: ASPIRIN 81 MG CHEW TAB PO SCH (09:00)
[2019-12-05] MEDS ORDERED: FUROSEMIDE 20 MG TAB PO SCH (09:00)
--- NOTE | 2019-12-05 10:19 | Progress Note ---
DATE: 12/05/2019 SUBJECTIVE: Mr. Fairchild is a 79-year-old man with history of a coronary artery disease, peripheral vascular disease, diabetes, hypertension, hyperlipidemia, came to the emergency room complaining of one week of not feeling good and having a headache and to notice the patient is hemodialysis patient because he has end-stage renal disease. He was tested. He was admitted to the hospital. Troponin level started coming high so he ruled in for a non STEMI. PHYSICAL EXAMINATION: GENERAL: Today, he is awake, but he looks very weak. He is not able to give us any good history. VITAL SIGNS: Temperature is 98.9, blood pressure is 160/51. HEART: Regular rate. LUNGS: Poor inspiratory effort. ABDOMEN: Soft. LABORATORY DATA: On the blood work, white count 8.37, hemoglobin 10.6, hematocrit 31.3. Potassium 3.9, creatinine 7.54. Troponin became elevated all the times. BNP is 4862. Influenza test was negative. Chest x-ray done today shows mildly bilateral interstitial opacity would reflect pulmonary venous congestion. ASSESSMENT AND PLAN: 1. Non ST-elevation myocardial infarction. 2. Right upper lobe pneumonia. 3. Severe coronary artery disease, status post coronary artery bypass graft. 4. Probably urinary tract infection. 5. Peripheral vascular disease. 6. End-stage renal disease. 7. Dialysis dependence. 8. Acute on chronic systolic and diastolic congestive heart failure. 9. 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 10. Hyperlipidemia. PLAN: Plan at the present time is to continue IV antibiotics. Cardiology consult was requested. We are also going to get an Infectious Disease consult. Awaiting for echocardiogram results. The patient to continue hemodialysis three times a week. Nephrology was consulted for that. Continue to monitor sugar. Hold insulin if blood sugar is low. All this was discussed with the patient. All questions were answered to satisfaction. I spent more than 40 minutes examining patient, reviewing overnight event, lab results, and discussing plan of care with him. MD TA Ribera/MODL /[id number]
[2019-12-05] MEDS ORDERED: FENTANYL CITRATE/PF 100MCG/2 ML INJ ONE (13:34)
[2019-12-05] MEDS ORDERED: MIDAZOLAM HCL 2 MG/2 ML VIAL ONE (13:34)
[2019-12-05] MEDS ORDERED: LIDOCAINE HCL 2% LOCAL 20 ML VIAL ONE (13:34)
[2019-12-05] MEDS ORDERED: IOPAMIDOL 370 MG/ML 200 ML INFUS..BTL INJ ONE ×2 (13:35→14:54)
[2019-12-05] MEDS ORDERED: HEPARIN SOD/SOD CHLORIDE 2,000 ML ONE (13:35)
[2019-12-05] MEDS ORDERED: SODIUM CHLORIDE 0.9% 1000ML 1,000 ML ONE (13:35)
--- NOTE | 2019-12-05 13:38 | NUR ---
pt off unit for procedure
--- NOTE | 2019-12-05 15:10 | Consultation ---
DATE OF CONSULTATION: 12/05/2019 Cardiology Consultation REQUESTING PHYSICIAN: Edie Salas MD REASON FOR CONSULTATION: [id number] myocardial infarction. HISTORY OF PRESENT ILLNESS: This is a 79-year-old male with history of coronary artery disease, status post CABG; peripheral arterial disease, diabetes mellitus, hypertension, hyperlipidemia, and end-stage renal disease, on hemodialysis, who presented with complaints of headache and feeling poorly. Evaluation in the emergency room revealed elevated troponin for which Cardiology is consulted for further evaluation. The patient is a poor historian and was not able to report on interview while he was in the hospital. He did endorse chest pain, shortness of breath, and fever, but he was found to have a right upper lobe opacity on CT of the cervical spine. REVIEW OF SYSTEMS: Negative except as per HPI. PAST MEDICAL HISTORY: 1. Coronary artery disease, status post CABG. 2. Peripheral arterial disease. 3. Diabetes mellitus. 4. Hypertension. 5. Hyperlipidemia. PAST SURGICAL HISTORY: 1. CABG. 2. Bilateral total knee replacement. 3. Left upper extremity AV fistula. 4. Right subclavian tunneled dialysis catheter. ALLERGIES: PLEASE SEE EMR. MEDICATIONS: Please see medication list. SOCIAL HISTORY: No tobacco or alcohol use. FAMILY HISTORY: Pertinent for heart disease. PHYSICAL EXAMINATION: VITAL SIGNS: Temperature 98.3 degrees, pulse 75, respiratory rate 20, blood pressure 185/72, and oxygen saturation 98% on nasal cannula. GENERAL: Elderly man, frail appearing, in no acute distress. HEENT: Normocephalic and atraumatic. Pupils equal. No scleral icterus. NECK: Supple. No thyromegaly or cervical lymphadenopathy. No carotid bruits. LUNGS: Clear to auscultation bilaterally. No wheezes or crackles. CARDIOVASCULAR: Normal rate. Regular rhythm. No murmur. Normal S1 and S2. ABDOMEN: Soft and nontender. EXTREMITIES: No edema. DIAGNOSTIC DATA: EKG, normal sinus rhythm, minimal voltage criteria for LVH, may be normal variant, cannot rule inferior infarct age undetermined. LABORATORY DATA: Sodium 132, potassium 3.9, chloride 99, CO2 of 22, BUN 44, and creatinine 7.54. Troponin 4.98. BNP 4863. WBC 8.37, hemoglobin 10.6, hematocrit 31.3, and platelets 77. IMPRESSION: 1. Lrq-HF-yjkmqxhdd myocardial infarction. 2. Right upper lobe pneumonia. 3. Severe coronary artery disease, status post two-vessel coronary artery bypass grafting. 4. Urinalysis suggestive of urinary tract infection. 5. Peripheral arterial disease. 6. End-stage renal disease, on hemodialysis. 7. Hypertension. 8. Hyperlipidemia. 9. Diabetes mellitus. RECOMMENDATIONS: Continue heparin drip. Continue aspirin. Fasting lipid panel was evaluated. LDL is at goal. Continue current cardiac medications. Antibiotics per Infectious Disease. Given degree of troponin elevation, we will discuss cardiac catheterization. Thank you for this consult. We will continue to follow. Alicja Guadarrama MD ABS/MODL /[id number]
[2019-12-05] MEDS ORDERED: HYDRALAZINE HCL 20 MG/ML VIAL ONE (15:13)
[2019-12-05] MEDS ORDERED: SODIUM CHLORIDE 0.9% 1000ML 2,000 ML ONE (16:01)
--- NOTE | 2019-12-05 16:06 | NUR ---
pt returned from heart cath. stable. now to receive dialysis
--- NOTE | 2019-12-05 17:05 | Operative Report ---
DATE OF PROCEDURE: 12/05/2019 SURGEON: Ambrocio Hobbs MD CARDIAC CATHETERIZATION REPORT INDICATION FOR PROCEDURE: Non-ST elevation VA. PREPROCEDURE ASSESSMENT: The risks, benefits, and alternatives of treatment were explained to the patient prior to the procedure. Informed consent was obtained and documented in the medical record. The patient was deemed to be an appropriate candidate for moderate sedation. MEDICATIONS: Please see nursing notes for all medications administered throughout the procedure. PROCEDURES PERFORMED: 1. Coronary angiography, right femoral approach. 2. Bypass graft angiography. 3. Left heart catheterization. 4. PCI to SVG to RCA graft with drug-eluting stent x1. 5. Femoral angiography. 6. Vascular closure device. 7. Moderate sedation x60 minutes. PROCEDURE IN DETAILS: The patient was brought to the cardiac catheterization laboratory in the fasting state. Right groin was prepped and draped in a sterile fashion. Access to the right common femoral artery was obtained using a micropuncture technique under manual and fluoroscopic guidance. A 6-[place] sheath was inserted into the right common femoral artery without any complication. Coronary angiography and bypass graft angiography were performed using JL4, JR4 and a multipurpose catheter. All catheters were removed over a wire. This demonstrated 80% hazy appearing lesion in the mid portion of SVG to the RCA graft. We decided to proceed with PCI. PCI of the SVG to RCA, a six-[place] multipurpose guide catheter was used, which provided excellent support. Lesion was crossed using a run-through wire. The spider filter was advanced over the run-through wire into the distal part of the SVG graft and deployed about 3 cm proximal to the anastomosis, PCI to the SVG to RCA was performed using a Synergy 4.0 x 20 mm stent deployed at 15 atmospheres for 30 seconds. This resulted in excellent angiographic result without any significant dissection thrombus or spasm. The spider filter was then captured and removed. Final angiogram showed MARCOS-3 flow with no complications. The patient tolerated the procedure well. ACT near 300 was maintained throughout PCI. Femoral angiography was performed and demonstrated arteriotomy in the right common femoral artery above the bifurcation and below the superior epigastric artery. Six-[place] sheath was removed, then a Mynx vascular closure device was deployed successfully. Ten minutes of manual pressure was held. This resulted in excellent hemostasis without any complications. SIGNIFICANT FINDINGS: Left main coronary artery severely calcified, lziy-ys-twpsglso stenosis LAD YOUTH SPECIALIST at the ostium. Mid to distal LAD fills via TAPIA to LAD graft. Large diagonal one system fills via the SVG to diagonal graft. Small ramus intermedius branch about 2 mm in diameter about 70% to 80% stenosis in the midportion. Left circumflex small diffusely diseased [place] left circumflex YOUTH SPECIALIST in the midportion. OM system and posterolateral system fills via the SVG to OM graft. RCA; large dominant RCA with severe diffuse disease, tapering to a YOUTH SPECIALIST in the midportion. Distal RCA and large RPDA fill via SVG to RCA graft. Bypass grafts TAPIA to LAD widely patent, SVG to diagonal is widely patent. There is previously placed stent at the anastomosis site with distal in-stent restenoses about 80% tapering into small caliber diagonal branch, overall small territory SVG to OM, mildly patent graft, supplies the OM and posterolateral systems diffuse disease of the OM and posterolateral branches, SVG to RCA, large SVG graft, focal hazy-appearing 80% stenosis in the midportion, LVEDP 17 mmHg. No gradient across the prosthetic aortic valve appears to be [place] TAVR valve. GRAFTS AND IMPLANTS: Drug-eluting stent x1 and Mynx. SPECIMEN REMOVED: None. COMPLICATIONS: None. ESTIMATED BLOOD LOSS: 20 mL. FINAL RECOMMENDATIONS: 1. Continue antiplatelet therapy with Plavix 75 mg daily in addition to apixaban 2.5 mg b.i.d. for chronic atrial fibrillation, atrial flutter. 2. Follow up in clinic 2 weeks post discharge. MD UMU King/KENYON /[id number]
--- NOTE | 2019-12-05 17:48 | NUR ---
pt noted to be nonresponsive verbally, eyes fixated to right, and right side trembling with left side stiffness. rapid called. pt taken for stat head ct. consult called, attending md paged.
--- NOTE | 2019-12-05 18:16 | Diagnostic Imaging Report ---
Exam: Head CT without contrast History: Altered mental status Comparison studies: Head CT of 12/04/2019, 09/28/2019 02/02/2019. Technique: Axial images were obtained from the skull base to the vertex. Coronal and sagittal images reconstructed from the axial data. Dose modulation, iterative reconstruction, and/or weight based adjustment of the mA/kV was utilized to reduce the radiation dose to as low as reasonably achievable. Radiation dose: Total DLP: 2073 mGy*cm. Estimated effective dose: DLP x 0.015 Intravenous contrast: None Findings: Exam is limited artifacts related to patient motion. In spite of limitations: Scalp: No abnormalities. Bones: No fractures, blastic or lytic lesions. Brain sulci: Mild prominent. Ventricles: Mild limits for dilatation. No hydrocephalus. Extra-axial spaces: No masses, no fluid collection. Parenchyma: No mass, acute hemorrhage or acute cortical insults. Small chronic-appearing right superior cerebellar infarct was not visualized on the prior 09/28/2019 CT but is unchanged from the recent 12/04/2019 CT. Ill-defined and confluent hypodensities in the supratentorial white matter are nonspecific but are most compatible with chronic microvascular ischemic changes. Sellar/suprasellar region: No abnormalities. Craniocervical junction: Patent foramen magnum. No Chiari one malformation. Middle ear mastoid cavities: Clear. Included paranasal sinuses: Small partially imaged right maxillary sinus retention cyst or polyp. Remaining sinuses are clear. Incidental findings: Bilateral intraocular lens replacements. IV contrast in the vasculature related to recent cardiac catheterization. Atherosclerotic calcifications in the carotid siphons and intradural vertebral arteries. IMPRESSION: Exam limited by motion artifacts. In spite of limitations: No gross acute intracranial abnormalities or changes from the recent head CT of 12/04/2019. Persistent findings: 1. Small chronic-appearing right superior cerebellar infarct. 2. Moderate microvascular ischemic changes. 3. Mild generalized parenchymal volume loss. Signed by: Dr. Jad Lopez M.D. on 12/05/2019 6:12 PM
--- NOTE | 2019-12-05 18:18 | NUR ---
cardio notified and aware, no new orders
--- NOTE | 2019-12-05 19:06 | Consultation ---
DATE OF CONSULTATION: 12/05/2019 REASON FOR CONSULTATION: Fever and headache. HISTORY OF PRESENT ILLNESS: This patient is a 79-year-old male, comes into the emergency room with one-week history of a severe headache. In the emergency room, he was found to have hemoglobin 10.6, BUN 37 and creatinine 6.8. The patient has history of end-stage renal disease, on hemodialysis three times a week. The patient came to the emergency room. His troponin was elevated. Sodium bicarb was 21. His urinalysis showed RBCs, his pH was 7.5. Influenza was negative, underwent chest x-ray, which revealed mild bilateral congestion. CT scan did not reveal any acute intracranial abnormality. The patient is being admitted. The patient has history of gout, history of pancreatic disease, coronary artery disease, hyperlipidemia and diabetes with neuropathy. ALLERGIES: KEFLEX. MEDICATIONS: 1. Allopurinol. 2. Amlodipine. 3. Aspirin. 4. Atenolol. 5. Furosemide. 6. Gabapentin. 7. Lovastatin. PAST SURGICAL HISTORY: CABG, bilateral total knee replacement, left upper extremity AV fistula placement, right subclavian tunneled catheter with left heart catheterization. SOCIAL HISTORY: Single, lives alone. No smoking. No drug abuse or alcohol abuse. FAMILY HISTORY: Coronary artery disease and diabetes. REVIEW OF SYSTEMS: Otherwise at present time as mentioned above. HEENT: Negative. PULMONARY: Negative. CARDIAC: Negative. : Negative. LABORATORY DATA: Reviewed. His white count on admission was 7.88, hemoglobin 10.6. His influenza A and B was negative. The patient was admitted with diagnosis of non-STEMI and he was also diagnosed with right upper lobe pneumonia. Infectious Disease was consulted. Cardiology was consulted. PHYSICAL EXAMINATION: GENERAL: He is currently alert, oriented, does not seem to be in acute distress. VITAL SIGNS: T-max 100.0. HEENT: Normocephalic, not icteric. NECK: Supple. CHEST: Few crackles on the right side. COR: S1-S2. No murmurs. ABDOMEN: Soft. Bowel sounds present. EXTREMITIES: No edema. IMPRESSION: Community-acquired pneumonia, probably component congestive heart failure. We will put the patient on Rocephin 1 g daily, azithromycin 500 mg daily. I will recommend to put the patient to use mask in the meantime since we are in the midst of COVID-19 outbreak, but I do not think clinically he is consistent with that. We will follow with you. MD MILAGROS Graham/KENYON /[id number]
--- NOTE | 2019-12-05 19:31 | Consultation ---
DATE OF CONSULTATION: 12/05/2019 HISTORY OF PRESENT ILLNESS: This is a 79-year-old gentleman, well known to our Nephrology Service with underlying history of end-stage renal disease, coronary artery bypass surgery, congestive heart failure, multiple comorbidities, very poor historian. Currently, awake, but appears quite weak and tired. Denies shortness of breath. No nausea. No PND noted or orthopnea noted. He is scheduled for cardiac cath. He initially presented to the emergency room because of headache and weakness, found to have progressive rise in troponin levels. Diagnosed to have a non ST-segment elevated MN. Hence, Dr. Ambrocio Hobbs is going to be doing cardiac cath. The patient is allergic to cephalexin. He is a very poor historian, unable to get full review of systems, but denies shortness of breath or headache or chest pain at this point in time. CURRENT MEDICATIONS: 1. Azithromycin 500 mg IV piggyback daily. 2. Ceftriaxone held. 3. Received piperacillin/tazobactam 2.25 IV q.12h. 4. Allopurinol 100 mg daily. 5. Amlodipine 10 mg daily. 6. Aspirin 325 mg once a day. 7. Tenormin 50 mg daily. 8. Calcium acetate 67 mg p.o. b.i.d. with meals. 9. Plavix 75 mg one time dose given. 10. Also, on furosemide 20 mg daily. 11. I am going to the hold off on his gabapentin as well. 12. He is on insulin. SOCIAL HISTORY: Does not smoke or drink. Has supportive family. He has several sons, who actively participating in his care. PHYSICAL EXAMINATION: GENERAL: Awake, alert, oriented x2, lying supine, in no apparent distress. VITAL SIGNS: Blood pressure 185/72, pulse rate is 75, and afebrile. HEAD AND NECK: Arcus senilis noted. Oral mucosa moist. Neck veins not distended. LUNGS: Occasional bibasilar rales. HEART: S1, S2 audible. ABDOMEN: Otherwise soft, nontender. No apparent visceromegaly. EXTREMITIES: Lower extremity examination shows no edema. IMPRESSION: End-stage renal disease, congestive heart failure, coronary artery bypass surgery, coronary artery disease, non ST-segment elevated MN, history of gout, peripheral neuropathy, type 2 diabetes, mild congestive heart failure. Plan on hemodialysis, status post cardiac cath. Dialysis nurse was contacted. Medications reviewed and adjusted. Please see orders. MD SUKHDEV Fernandez/KENYON /[id number]
--- NOTE | 2019-12-05 20:38 | NUR ---
1929- Per Dr. Jackson, he is not taking call to [facility] for another week. retail business development manager aware. 1933- Voicemail left for Dr. Matias regarding new consult. 2034- Voicemail left again for Dr. Matias regarding new consult/pt condition. 2034- Dr. Salas paged regarding patient condition, awaiting return call.
[2019-12-05] MEDS: AZITHROMYCIN 500MG/NS 250 ML 250 ML IV SCH (20:45)
[2019-12-05] MEDS: SIMVASTATIN 20 MG TAB PO SCH (20:46)
--- NOTE | 2019-12-05 21:05 | NUR ---
Dr. Matias returned voicemails (x2). He stated he is "not continuing education instructor for this hospital" and will not be taking the patient. 2104- Dr. Salas returned call. Orders received. MD is aware that both Dr. Jackson and Dr. Matias are not going to see patient as they are "not continuing education instructor". 2109- Left voicemail for Dr. Navarro regarding new consult/pt condition. 2116- global transportation manager aware of neuro MD's both refusing patient. Paged Dr. Salas for request to transfer patient to other hospital d/t no neurology doctors. 2129- Dr. Salas stated "no other hospital will accept him" and that transfer to ICU is indicated, not to another hospital. Orders received. 2205-Left voicemail for Dr. Navarro regarding new consult/pt condition. Awaiting return call. Addendum: 12/06/19 at 0154 by Claudia Acosta RN Dr. Salas aware of patient's irregular breathing pattern.
[2019-12-05 21:44] LABS: BASOPHILS % 0.1 % (0.0-1.0); EOSINOPHILS % 0.1 % (0.0-6.0); HEMOGLOBIN 9.6 g/dL (14.0-18.0); LYMPHOCYTES # (AUTO) 1.1 (1.0-3.2); LYMPHOCYTES % 12.2 % (18.0-39.1); MEAN CORPUSCULAR HEMOGLOBIN 30.4 pg (28-32); MEAN CORPUSCULAR HGB CONC 33.1 g/dL (31-35); MEAN CORPUSCULAR VOLUME 91.8 fL (81-99); MONOCYTES # (AUTO) 0.8 (0.2-0.8); MONOCYTES % 8.8 % (4.4-11.3); NEUTROPHILS # (AUTO) 7.3 (2.1-6.9); NEUTROPHILS % 77.8 % (38.7-80.0); PLATELET COUNT 95 x10e3/uL (140-360); RED BLOOD COUNT 3.16 x10e6/uL (4.3-5.7)
[2019-12-05] MEDS ORDERED: ACETAMINOPHEN 650 MG SUPP PR PRN (21:45)
--- NOTE | 2019-12-05 21:52 | Diagnostic Imaging Report ---
Portable chest x-ray INDICATION: Irregular breathing COMPARISON: Chest x-ray 0605 hours FINDINGS: Frontal view of the chest obtained at 2132 hours. The cardiac silhouette is top normal in size and stable in morphology with cardiac bypass changes and a TAVR. Dual lumen central venous catheter terminates at the cavoatrial junction pulmonary vasculature is prominent and indistinct. Lung volumes are low with patchy groundglass airspace opacities in the lower lung zones. No large effusions. No pneumothorax. Median sternotomy wires are intact. No focal osseous lesions. IMPRESSION: 1. No change in pulmonary vascular congestion. 2. Patchy bibasilar airspace opacities may be the result of atelectasis or pneumonia. Signed by: Dr. Danielle Bhakta MD on 12/05/2019 9:48 PM
[2019-12-05 21:56] LABS: ANION GAP 18.4 mmol/L (8-16); CALCIUM 8.1 mg/dL (8.4-10.2); CREATININE, SERUM 6.62 mg/dL (0.72-1.25); POTASSIUM 4.4 mmol/L (3.5-5.1)
--- NOTE | 2019-12-05 22:56 | NUR ---
Transferred to [facility] via bed by RN.
--- NOTE | 2019-12-05 23:31 | NUR ---
Left voicemail for Dr. Navarro again. Awaiting return call.
[2019-12-06] VITALS (22 sets, daily range): BP systolic 97–151; BP diastolic 42–69
[2019-12-06] MEDS: FAMOTIDINE 20 MG/2 ML VIAL IV SCH ×2 (04:21→16:40)
[2019-12-06 04:49] LABS: BASOPHILS % 0.2 % (0.0-1.0); EOSINOPHILS % 0.5 % (0.0-6.0); HEMATOCRIT 25.7 % (38.2-49.6); HEMOGLOBIN 8.5 g/dL (14.0-18.0); LYMPHOCYTES # (AUTO) 1.8 (1.0-3.2); LYMPHOCYTES % 21.6 % (18.0-39.1); MEAN CORPUSCULAR HEMOGLOBIN 30.8 pg (28-32); MEAN CORPUSCULAR HGB CONC 33.1 g/dL (31-35); MEAN CORPUSCULAR VOLUME 93.1 fL (81-99); MONOCYTES % 11.6 % (4.4-11.3); NEUTROPHILS # (AUTO) 5.5 (2.1-6.9); NEUTROPHILS % 65.4 % (38.7-80.0); PLATELET COUNT 98 x10e3/uL (140-360); RED BLOOD COUNT 2.76 x10e6/uL (4.3-5.7); RED CELL DISTRIBUTION WIDTH 15.3 % (11.7-14.4)
[2019-12-06 05:04] LABS: ANION GAP 16.1 mmol/L (8-16); CREATININE, SERUM 7.16 mg/dL (0.72-1.25); POTASSIUM 4.1 mmol/L (3.5-5.1)
--- NOTE | 2019-12-06 06:17 | NUR ---
Dr. Navarro called again regarding patient.
--- NOTE | 2019-12-06 06:31 | NUR ---
Spoke with Dr. Navarro regarding patient. No new orders received.
[2019-12-06] MEDS: SEVELAMER CARBONATE 800 MG TAB PO SCH ×3 (07:23→16:30)
[2019-12-06] MEDS: CALCIUM ACETATE 667 MG GELCAP PO SCH ×2 (07:26→16:33)
[2019-12-06] MEDS ORDERED: SODIUM CHLORIDE 0.9% 1000ML 2,000 ML ONE (07:39)
[2019-12-06] MEDS: INSULIN LISPRO 100 UNIT/1 ML 3ML VIAL SQ SCH ×3 (08:00→17:00)
[2019-12-06] MEDS: AMLODIPINE BESYLATE 10 MG TAB PO SCH (09:00)
[2019-12-06] MEDS: ALLOPURINOL 100 MG TAB PO SCH (09:00)
[2019-12-06] MEDS: INSULIN GLARGINE 100 UNITS/ML VIAL SQ SCH ×2 (09:00→20:45)
[2019-12-06] MEDS: ATENOLOL 50 MG TAB PO SCH (09:00)
[2019-12-06] MEDS: ASPIRIN 81 MG ENTERIC COATED PO SCH (09:00)
--- NOTE | 2019-12-06 09:04 | Consultation ---
DATE OF CONSULTATION: Pulmonary Critical Care Consultation CHIEF COMPLAINT: Decreased responsiveness and possible CVA. HISTORY OF PRESENT ILLNESS: The patient is a 79-year-old man. He came to the emergency department on the after a 1-week history of a headache. He was found to have elevated troponins as well as pulmonary congestion and a possible bacterial pneumonia. He was seen by Cardiology. He was evaluated by Cardiology and felt to have a non-ST-T wave myocardial infarction. He was also seen by Nephrology and continued on his dialysis. Infectious Disease was consulted and recommended treatment for community-acquired pneumonia. Infectious Disease pci security consultant did not believe that COVID-19 testing was required. Last night, the patient went to the hemodialysis lab technician. He had a catheterization with a right-sided stent placed. Shortly after the catheterization, he became unresponsive. Rapid response was called. He was subsequently transferred to the Intensive Care Unit. He was found to have some left-sided weakness. A CT scan was done that showed no acute changes. His blood sugar was checked and he was not hypoglycemic. PAST SURGICAL HISTORY: 1. Status post coronary artery bypass grafting. 2. Status post AV fistula placement for dialysis. 3. Status post total knee replacement. 4. Recent heart catheterization with an RCA stent. PAST MEDICAL HISTORY: 1. Diabetes. 2. Coronary artery disease. 3. End-stage renal disease. 4. Hypertensive heart disease. SOCIAL HISTORY: The patient is not a smoker. He does not drink. FAMILY HISTORY: Significant for coronary artery disease. ALLERGIES: THE PATIENT IS ALLERGIC TO KEFLEX. REVIEW OF SYSTEMS: There was no report of any fevers. He did have a headache. He did not have any neck pain. He did not have chest pain. He did have some cough and congestion. He did not have abdominal pain. He is now unresponsive and has left-sided weakness. PHYSICAL EXAMINATION: VITAL SIGNS: The blood pressure is 143/57 and the saturation is 100% on 2 L. HEENT: Shows no facial swelling or erythema. CARDIAC: Reveals regular rate and rhythm with normal S1, S2. LUNGS: Auscultation of lungs reveals rhonchorous breath sounds bilaterally. There is no wheezing. ABDOMEN: Soft and nontender. There is no rebound or guarding. EXTREMITIES: Show no leg edema or calf tenderness. NEUROLOGICAL: The patient does have a dense left-sided hemiparesis. His eyes are deviated to the right and he has some myoclonic abnormal movements in the right arm. RADIOGRAPHIC DATA: CT scan of the head shows a chronic appearing right superior cerebellar infarct. There are some moderate microvascular changes. Chest x-ray shows bibasilar patchy airspace opacities suggestive of possible pneumonia. CT scan of the cervical spine from the shows no acute changes. LABORATORY DATA: White blood cell count is 8.3 and hemoglobin is 8.5. The platelet count is 98. The BUN to creatinine ratio is 46-7.16. The other electrolytes are within normal limits. Lactic acid is normal. IMPRESSION: 1. Acute cerebral vascular accident. 2. Nontransmural myocardial infarction requiring a PTCA and stent placement in the right coronary artery. 3. Diabetes mellitus. 4. End-stage renal disease. 5. Resolving community-acquired pneumonia. 6. Hypertension. PLAN: 1. The patient will require anti-platelet therapy. 2. Repeat CT scan of the head after 24 hours. 3. The patient is not a candidate for tPA. 4. EEG. 5. Continue to monitor and control blood sugars. 6. Repeat chest x-ray. 7. Continue dialysis as needed. 8. Prognosis remains poor. Jonathan Navarro MD [facility]/MODL /[id number]
[2019-12-06] MEDS: PIPERACILLIN/TAZO 2.25 GM 50 ML IV SCH ×2 (09:47→20:42)
--- NOTE | 2019-12-06 10:13 | Progress Note ---
DATE: 12/06/2019 SUBJECTIVE: Mr. Fairchild is a 79-year-old man with multiple comorbidities, coronary artery disease, peripheral vascular disease, diabetes, hypertension, hyperlipidemia, came to the emergency room because he was feeling weak and had a headache. He ruled in for a non-STEMI. He went for a cardiac cath with stent placement. After that, he went to dialysis. While in dialysis, he was awake and alert and then suddenly he started having changes in mental status. Dialysis had to be stopped. The patient was sent back to [facility] and transferred to ICU due to the changes in mental status. A head CT was negative. We could not get any neurologist to see the patient at the present time. I just discussed the case with Dr. Li, and probably, the patient needs higher level of care, so we were going to try to see if we can transfer him to the Medical Center. OBJECTIVE: GENERAL: The patient open his eyes, but he does not follow any commands. He does not even look like he is listening. He has this kind of jerking movements, does not move the extremities. VITAL SIGNS: Temperature is 98.8, blood pressure of 128/60. HEART: Regular rate. LUNGS: Poor inspiratory effort. ABDOMEN: Soft. LABORATORY DATA: On the blood work, white count is 8.39, hemoglobin 8.5, hematocrit 25.7. Potassium is 4.1, creatinine 7.16, glucose is 128. Blood cultures so far, the first one was negative. New blood cultures were ordered since he had low-grade temperature. He had a head CT done yesterday that shows a small chronic-appearing right superior cerebral infarct, nothing acute at the present time. Chest x-ray showed no changes in the pulmonary vascular congestion. ASSESSMENT AND PLAN: 1. Acute changes in mental status, status post cardiac catheterization, is concerning for acute stroke. 2. Coronary artery disease, status post uhp-MU-bchtrjwyn myocardial infarction, status post stent. 3. Right upper lobe pneumonia. 4. Peripheral vascular disease. 5. End-stage renal disease. 6. Dialysis dependence. 7. Acute on chronic systolic and diastolic congestive heart failure. 8. 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 9. Hyperlipidemia. PLAN: At the present time is the patient had cardiac cath yesterday, developed changes in mental status. His CT has been negative. We do not have any neurologist available to evaluate the patient for the changes in mental status. He is on IV antibiotics for probable pneumonia. He is also on dialysis. I discussed the case with Dr. Li and the feeling is that the patient will benefit from a higher level of care, so we are going to try to see if we can transfer him to the Medical Center. I spent more than 45 minutes examining patient, reviewing overnight events, lab results, and trying to see what is the next step with him. I also discussed the case with the nurse and with Dr. Li. MD TA Ribera/SHELLEYL /[id number]
--- NOTE | 2019-12-06 14:20 | NUR ---
PT TRANSFERED TO ICU FOR ALTERED MENTAL STATUS S/P HEART CATH AND STENT PLACEMENT SUSPECTED CVA UNABLE TO GET EITHER OF OUR NEUROLOGISTS TO COME SEE PT DR MONROY AND ADMINISTRATION AWARE OF SITUATION OR[facility]ERS [facility] CM CALLED AND SPOKE WITH PT'S SON, ROSIO HERNANDEZ [phone] EXPLAINED THAT WE HAVE ORDERS TO [facility]. EXPLAINED THAT HE HAS THE CHOICE OF ANY HOSPITAL. HE AGREES WITH [facility]. CHOICE LETTER TAKEN AND WITNESSED OVER PHONE. MOT AND AMBULANCE CONSENTS TAKEN AND WITNESSED; GAVE SON MY NUMBER FOR QUESTIONS/CONCERNS ROHINI SPOKE WITH DR MONROY WHO IS WILLING TO DO DOC TO DOC FOR TRANSFER INITIATED TRANSFER TO [facility]; PH: [phone]- SPOKE WITH SAD[facility] IN THE TRANSFER CENTER; FAXED H+P AND FACE SHEET TO [phone]; CONFIRMATION SECURED MOT INITIATED AND PLACED IN TRANSFER PACKET
--- NOTE | 2019-12-06 15:20 | NUR ---
REC'D CALL FROM SADAF AT [facility] SHE STATES THEY CALLED DR MONROY ON HER CELL PHONE AND THERE WAS NO ANSWER AND VM WAS FULL CM TEXTED DR MONROY AND NOTIFIED HER THAT [facility] WAS TRYING TO REACH HER FOR DOC TO DOC
[2019-12-06] MEDS ORDERED: CLOPIDOGREL BISULFATE 75 MG TAB PO SCH (15:30)
--- NOTE | 2019-12-06 16:31 | Progress Note ---
DATE: 12/06/2019 Cardiology Progress Note SUBJECTIVE: The patient underwent PCI of the SVG to RCA graft yesterday. Post procedure, he was taken for hemodialysis. During dialysis, he developed altered mental status and seizure was suspected. He was subsequently transferred to the ICU for further care. Currently pending transfer to [facility] for Neurology evaluation. OBJECTIVE: VITAL SIGNS: Temperature 98.8 degrees, pulse 67, respiratory rate 18, blood pressure 128/60, and oxygen saturation 100% on 2 L nasal cannula. GENERAL: Elderly man, frail, unresponsive. LUNGS: Clear to auscultation bilaterally. No wheezes or crackles. CARDIOVASCULAR: Normal rate. Regular rhythm. No murmur. Normal S1 and S2. ABDOMEN: Soft and nontender. EXTREMITIES: No edema. CARDIAC MEDICATIONS: Simvastatin 20 mg p.o. at bedtime, atenolol 50 mg p.o. daily, amlodipine 10 mg p.o. daily, and aspirin 81 mg p.o. daily. LABORATORY DATA: WBC 8.39, hemoglobin 8.5, hematocrit 25.7, and platelets 98. Sodium 137, potassium 4.1, chloride 99, CO2 26, BUN 46, and creatinine 7.16. Telemetry was personally reviewed and interpreted, revealing normal sinus rhythm with PVCs. IMPRESSION: 1. Zkn-GA-mjefvtkie myocardial infarction. 2. Altered mental status. 3. Right upper lobe pneumonia. 4. Severe coronary artery disease, status post two-vessel coronary artery bypass grafting. 5. Urinalysis suggestive of urinary tract infection. 6. Peripheral arterial disease. 7. End-stage renal disease, on hemodialysis. 8. Hypertension. 9. Hyperlipidemia. 10. Diabetes mellitus. RECOMMENDATIONS: Continue dual anti-platelet therapy. The patient is status post PCI of the SVG to RCA graft. Continue current cardiac medications otherwise, specifically continue simvastatin, atenolol can be held at this time. Antibiotics per Infectious Disease. Continue supportive care. Pending transfer to [facility] for neuro evaluation. Thank you for this consult. We will continue to follow. Alicja Guadarrama MD [facility]/MODL /[id number]
--- NOTE | 2019-12-06 17:08 | Diagnostic Imaging Report ---
Exam: KUB - 2 views Indication: Feeding tube placement Comparison: Chest radiograph of earlier the same day Findings: Feeding tube is not visualized in the abdomen and may be coiled more superiorly. Nonobstructive bowel gas pattern. No free air. Impression: Feeding tube not visualized, possibly coiled more superiorly. Signed by: Kaushal Bean MD on 12/06/2019 5:05 PM
--- NOTE | 2019-12-06 19:15 | Diagnostic Imaging Report ---
Portable chest x-ray INDICATION: NG tube placement COMPARISON: Chest x-ray 12/05/2019 FINDINGS: The upper portion of lungs are excluded. Dual lumen central venous catheter terminates at the right atrium. The NG tube terminates in the stomach. There is low lung volume. Pulmonary vasculature is prominent and patchy groundglass airspace opacities in the lower lung zones are again seen similar to prior exam. The cardiac silhouette is top normal in size and stable in morphology with cardiac bypass changes and a TAVR. No large effusions. No pneumothorax. Median sternotomy wires are intact. No focal osseous lesions. IMPRESSION: NG tube in appropriate place. Otherwise unchanged. Signed by: Darrel Garnett MD on 12/06/2019 7:12 PM
--- NOTE | 2019-12-06 19:56 | Progress Note ---
DATE: SUBJECTIVE: Mr. Fairchild is currently in intensive care unit. Discussed with the family and the patient's prognosis remains poor. The patient underwent PCI of the SVG to RCA graft yesterday. Post procedure, he was taken for hemodialysis. During his dialysis, he dropped his blood pressure. He had altered mental status. He had seizure activity, concerned he may have a stroke. Discussed with the family discussed with Cardiology. His prognosis remains extremely poor. We talked about DNR versus what to do next. The family and the son understand how grim. IMPRESSION: 1. Xmu-TE-cdfrpwdhq myocardial infarction. 2. Seizure. 3. Cerebrovascular accident. 4. Pneumonia. 5. Coronary artery disease. 6. Congestive heart failure. 7. Peripheral arterial disease. 8. End-stage renal disease. 9. Diabetes mellitus. 10. Neuropathy. 11. Prognosis is poor. We will follow. MD MILAGROS Graham/KENYON /[id number]
--- NOTE | 2019-12-06 20:30 | NUR ---
Report called to 7S4 bed 3 nurse Romi at [facility]
--- NOTE | 2019-12-06 20:30 | NUR ---
NG tube in appropriate position per radiologist.
[2019-12-06] MEDS: AZITHROMYCIN 500MG/NS 250 ML 250 ML IV SCH (20:41)
[2019-12-06] MEDS: SIMVASTATIN 20 MG TAB PO SCH (20:42)
--- NOTE | 2020-01-03 09:46 | Discharge Summary ---
HISTORY: Mr. Fairchild is a 79-year-old man with multiple comorbidities, coronary artery disease, peripheral vascular disease, diabetes, hypertension, hyperlipidemia, who came to the emergency room feeling weak and having a headache. He ruled in for a non-STEMI. He went for cardiac cath and had a stent placed. After that, he went for dialysis. While in dialysis, he started having suddenly changes in mental status. He was transferred to ICU. The head CT at that moment was negative, but the patient had weakness on one side of his body and he was aphasic. PHYSICAL EXAMINATION: GENERAL: He was able to open the eyes, but he could not talk. HEART: Regular rate. LUNGS: Poor inspiratory effort. ABDOMEN: Soft. LABORATORY DATA: On the blood work; white count was 8.39, hemoglobin 8.5, hematocrit was 25.7. Potassium was 4.1, creatinine 7.16, blood sugar was 128. A head CT show only small chronic changes. Chest x-ray shows some pulmonary vascular congestion. ASSESSMENT AND PLAN: 1. Acute changes in mental status, probably due to acute cerebrovascular accident with aphasia and hemiplegia. 2. Coronary artery disease, status post hpv-OT-herollheg myocardial infarction, status post stent. 3. Right upper lobe pneumonia. 4. Peripheral vascular disease. 5. End-stage renal disease. 6. Dialysis dependence. 7. Nawtr-ra-srapyja systolic and diastolic congestive heart failure. 8. 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 9. Hyperlipidemia. The patient was seen in the ICU. He had these changes in mental status that happened suddenly after the stent placement. He could not move one side of his body. He was on IV antibiotics and dialysis. Discussed with consultants. We do not have any neurologist available to evaluate the patient. So, the patient was transferred to the [facility] for a higher level of care. All this was discussed in extension with consultants. A transfer was done to the [facility]. Medications were reconciled. Overall, prognosis of the patient was poor due to acute problems and all his multiple comorbidities. Edie Salas MD [facility]/MODL /[id number]
== END 2019-12-06 22:10 | disposition short-term general hospital (02) | DRG 246 ==
LOC: ER 11:20 → ERHOLD 16:30 → IMCU 18:55 → ICU 12-05 22:53
PROVIDERS: ADMIT Internal Medicine; ATTEND Internal Medicine
PROC: 5A1D70Z Performance of Urinary Filtration, Intermittent, Less than 6 Hours Per Day (ICD-10-PCS; principal; 2019-12-05)
PROC: 027034Z Dilation of Coronary Artery, One Artery with Drug-eluting Intraluminal Device, Percutaneous Approach (ICD-10-PCS; 2019-12-05)
PROC: 4A023N7 Measurement of Cardiac Sampling and Pressure, Left Heart, Percutaneous Approach (ICD-10-PCS; 2019-12-05)
PROC: B41F1ZZ Fluoroscopy of Right Lower Extremity Arteries using Low Osmolar Contrast (ICD-10-PCS; 2019-12-05)
PROC: B2111ZZ Fluoroscopy of Multiple Coronary Arteries using Low Osmolar Contrast (ICD-10-PCS; 2019-12-05)
PROC: B2121ZZ Fluoroscopy of Single Coronary Artery Bypass Graft using Low Osmolar Contrast (ICD-10-PCS; 2019-12-05)
DX: I21.4 Non-ST elevation (NSTEMI) myocardial infarction (principal); N18.6 End stage renal disease; J15.6 Pneumonia due to other Gram-negative bacteria; I50.43 Acute on chronic combined systolic (congestive) and diastolic (congestive) heart failure; I63.9 Cerebral infarction, unspecified; I13.2 Hypertensive heart and chronic kidney disease with heart failure and with stage 5 chronic kidney disease, or end stage renal disease; Z99.2 Dependence on renal dialysis; I25.10 Atherosclerotic heart disease of native coronary artery without angina pectoris; Z95.1 Presence of aortocoronary bypass graft; M10.9 Gout, unspecified; E11.42 Type 2 diabetes mellitus with diabetic polyneuropathy; E78.5 Hyperlipidemia, unspecified; Z96.653 Presence of artificial knee joint, bilateral; E11.22 Type 2 diabetes mellitus with diabetic chronic kidney disease; R56.9 Unspecified convulsions
CPT/HCPCS: 36415; 36555; 36600; 70450; 71045; 72125; 74018; 80048; 80053; 80061; 81001; 82140; 82550; 82553; 82948; 83518; 83605; 83735; 83880; 84484; 85025; 85610; 85730; 86705; 86706; 87040; 87070; 87071; 87186; 87205; 87340; 87400; 90962; 92928; 93005; 93455; 93880; 99152; 99153; 99251; 99284; C1760; C1769; C1874; J0360; J0456; J1644; J1815; J2001; J2250; J2405; J2543; J3010; J7030; Q9967